=== PATIENT | female | born 1960 | race Caucasian/White ===

== ENCOUNTER → 2019-06-24 13:28 | Outpatient (BNVA) | payer MEDICAID, SELFPAY | PROVIDERS: Family Provider Nurse Practitioner Family; PCP Nurse Practitioner Family; Visit Provider Nurse Practitioner Family | DX: Z95.2 Presence of prosthetic heart valve (principal) | CPT/HCPCS: 36416; 85610 ==

== ENCOUNTER → 2019-10-07 11:00 | Outpatient (BNVA) | payer MEDICAID, SELFPAY | PROVIDERS: Family Provider Nurse Practitioner Family; PCP Nurse Practitioner Family; Visit Provider Nurse Practitioner Family | DX: R32 Unspecified urinary incontinence (principal); E03.9 Hypothyroidism, unspecified; E78.5 Hyperlipidemia, unspecified; Z79.899 Other long term (current) drug therapy; E55.9 Vitamin D deficiency, unspecified | CPT/HCPCS: 81001 ==

== ENCOUNTER → 2019-11-10 13:03 | Outpatient (BNVA) | payer MEDICAID, SELFPAY | PROVIDERS: Family Provider Nurse Practitioner Family; PCP Nurse Practitioner Family; Visit Provider Nurse Practitioner Family | DX: Z79.01 Long term (current) use of anticoagulants (principal) | CPT/HCPCS: 85610 ==

== ENCOUNTER → 2019-11-17 14:42 | Outpatient (BNVA) | payer MEDICAID, SELFPAY | PROVIDERS: Family Provider Nurse Practitioner Family; PCP Nurse Practitioner Family; Visit Provider Internal Medicine Cardiovascular Disease | DX: Z79.01 Long term (current) use of anticoagulants (principal) | CPT/HCPCS: 85610 ==

== ENCOUNTER → 2019-11-20 11:55 | Outpatient (BNVA) | payer MEDICAID, SELFPAY | PROVIDERS: Family Provider Nurse Practitioner Family; PCP Nurse Practitioner Family; Visit Provider Nurse Practitioner Family | DX: S20.01XA Contusion of right breast, initial encounter (principal); N64.4 Mastodynia; R07.89 Other chest pain; S29.9XXA Unspecified injury of thorax, initial encounter; W19.XXXA Unspecified fall, initial encounter | CPT/HCPCS: 71046 ==

== ENCOUNTER → 2019-11-26 13:23 | Outpatient (BNVA) | payer MEDICAID, SELFPAY | PROVIDERS: Family Provider Nurse Practitioner Family; PCP Nurse Practitioner Family; Visit Provider Nurse Practitioner Family | DX: Z79.01 Long term (current) use of anticoagulants (principal) | CPT/HCPCS: 85610 ==

== ENCOUNTER → 2019-12-17 09:10 | Outpatient (BNVA) | payer MEDICAID, SELFPAY | PROVIDERS: Family Provider Nurse Practitioner Family; PCP Nurse Practitioner Family; Visit Provider Nurse Practitioner Family | DX: Z79.01 Long term (current) use of anticoagulants (principal) | CPT/HCPCS: 85610 ==

== ENCOUNTER → 2020-04-12 14:08 | Outpatient (BNVA) | payer SELFPAY | PROVIDERS: Family Provider Nurse Practitioner Family; PCP Nurse Practitioner Family; Visit Provider Nurse Practitioner Family | DX: Z79.01 Long term (current) use of anticoagulants (principal) | CPT/HCPCS: 85610 ==

== ENCOUNTER → 2020-05-11 11:54 | Outpatient (BNVA) | payer MEDICAID, SELFPAY | PROVIDERS: Family Provider Nurse Practitioner Family; PCP Nurse Practitioner Family; Visit Provider Internal Medicine Nephrology | DX: N18.30 Chronic kidney disease, stage 3 unspecified (principal); Z79.01 Long term (current) use of anticoagulants | CPT/HCPCS: 80069; 82043; 85007; 85027 ==

== ENCOUNTER → 2020-09-27 14:04 | Outpatient (BNVA) | payer MEDICAID, SELFPAY | PROVIDERS: Family Provider Nurse Practitioner Family; PCP Nurse Practitioner Family; Visit Provider Nurse Practitioner Family | DX: Z79.01 Long term (current) use of anticoagulants (principal) | CPT/HCPCS: 85610 ==

== ENCOUNTER → 2020-10-15 09:06 | Outpatient (BNVA) | payer MEDICAID, SELFPAY | PROVIDERS: Family Provider Nurse Practitioner Family; PCP Nurse Practitioner Family; Visit Provider Nurse Practitioner Family | DX: I10 Essential (primary) hypertension (principal); E03.9 Hypothyroidism, unspecified; E55.9 Vitamin D deficiency, unspecified; E78.5 Hyperlipidemia, unspecified; Z79.899 Other long term (current) drug therapy; Z79.01 Long term (current) use of anticoagulants | CPT/HCPCS: 80053; 80061; 80178; 82306; 83036; 84443; 85025 ==

== ENCOUNTER → 2020-11-09 09:49 | Outpatient (BNVA) | payer MEDICAID, SELFPAY | PROVIDERS: Family Provider Nurse Practitioner Family; PCP Nurse Practitioner Family; Visit Provider Nurse Practitioner Family | DX: M25.552 Pain in left hip (principal) | CPT/HCPCS: 73502 ==

== ENCOUNTER → 2021-02-01 14:54 | Outpatient (BNVA) | payer MEDICAID, SELFPAY | PROVIDERS: Family Provider Nurse Practitioner Family; PCP Nurse Practitioner Family; Visit Provider Nurse Practitioner Family | DX: Z79.01 Long term (current) use of anticoagulants (principal) | CPT/HCPCS: 85610 ==

== ENCOUNTER → 2021-02-07 09:46 | Outpatient (BNVA) | payer MEDICAID, SELFPAY | PROVIDERS: Family Provider Nurse Practitioner Family; PCP Nurse Practitioner Family; Visit Provider Nurse Practitioner Family | DX: Z79.01 Long term (current) use of anticoagulants (principal) | CPT/HCPCS: 85610 ==

== ENCOUNTER → 2021-02-14 09:22 | Outpatient (BNVA) | payer MEDICAID, SELFPAY | PROVIDERS: Family Provider Nurse Practitioner Family; PCP Nurse Practitioner Family; Visit Provider Nurse Practitioner Family | DX: Z79.01 Long term (current) use of anticoagulants (principal) | CPT/HCPCS: 85610 ==

== ENCOUNTER → 2021-02-21 16:33 | Outpatient (BNVA) | payer MEDICAID, SELFPAY | PROVIDERS: Family Provider Nurse Practitioner Family; PCP Nurse Practitioner Family; Visit Provider Internal Medicine | DX: Z79.01 Long term (current) use of anticoagulants (principal) | CPT/HCPCS: 85610 ==

== ENCOUNTER → 2021-02-28 11:25 | Outpatient (BNVA) | payer MEDICAID, SELFPAY | PROVIDERS: Family Provider Nurse Practitioner Family; PCP Nurse Practitioner Family; Visit Provider Nurse Practitioner Family | DX: Z79.01 Long term (current) use of anticoagulants (principal) | CPT/HCPCS: 85610 ==

== ENCOUNTER → 2021-03-07 11:19 | Outpatient (BNVA) | payer MEDICAID, SELFPAY | PROVIDERS: Family Provider Nurse Practitioner Family; PCP Nurse Practitioner Family; Visit Provider Internal Medicine | DX: Z79.01 Long term (current) use of anticoagulants (principal) | CPT/HCPCS: 85610 ==

== ENCOUNTER 2021-03-24 | Outpatient (CLI) | payer MEDICAID, SELFPAY | END 2021-03-24 00:01 | disposition home or self-care (01) | LOC: RAD 11-01 09:48 | PROVIDERS: Family Provider Nurse Practitioner Family; PCP Internal Medicine; Visit Provider Internal Medicine | DX: Z79.01 Long term (current) use of anticoagulants (principal) | CPT/HCPCS: 85610 ==

== ENCOUNTER → 2021-04-19 10:29 | Outpatient (BNVA) | payer MEDICAID, SELFPAY | PROVIDERS: Family Provider Nurse Practitioner Family; PCP Internal Medicine; Visit Provider Nurse Practitioner Family | DX: Z79.01 Long term (current) use of anticoagulants (principal) | CPT/HCPCS: 85610 ==

== ENCOUNTER → 2021-05-11 10:30 | Outpatient (BNVA) | payer MEDICAID, SELFPAY | PROVIDERS: Family Provider Nurse Practitioner Family; PCP Internal Medicine; Visit Provider Nurse Practitioner Family | DX: I10 Essential (primary) hypertension (principal); E03.9 Hypothyroidism, unspecified; Z79.01 Long term (current) use of anticoagulants; E78.5 Hyperlipidemia, unspecified; Z79.899 Other long term (current) drug therapy | CPT/HCPCS: 81003; 85025; 85610; 87077; 87086; 87184; 87400 ==

== ENCOUNTER → 2021-05-12 13:42 | Outpatient (BNVA) | payer MEDICAID, SELFPAY | PROVIDERS: Family Provider Nurse Practitioner Family; PCP Internal Medicine; Visit Provider Nurse Practitioner Family | DX: R19.7 Diarrhea, unspecified (principal) | CPT/HCPCS: 87506 ==

== ENCOUNTER → 2021-05-17 10:13 | Outpatient (BNVA) | payer MEDICAID, SELFPAY | PROVIDERS: Family Provider Nurse Practitioner Family; PCP Internal Medicine; Visit Provider Nurse Practitioner Family | DX: E78.5 Hyperlipidemia, unspecified (principal); I10 Essential (primary) hypertension; E03.9 Hypothyroidism, unspecified; Z95.2 Presence of prosthetic heart valve; Z79.899 Other long term (current) drug therapy | CPT/HCPCS: 36415; 80053; 80061; 82306; 83036; 84443; 85025 ==

== ENCOUNTER → 2021-06-14 13:03 | Outpatient (BNVA) | payer MEDICAID, SELFPAY | PROVIDERS: Family Provider Nurse Practitioner Family; PCP Internal Medicine; Visit Provider Nurse Practitioner Family | DX: Z79.01 Long term (current) use of anticoagulants (principal) | CPT/HCPCS: 85610 ==

== ENCOUNTER → 2021-07-13 09:52 | Outpatient (BNVA) | payer MEDICAID, SELFPAY | PROVIDERS: Family Provider Nurse Practitioner Family; PCP Internal Medicine; Visit Provider Nurse Practitioner Family | DX: E03.9 Hypothyroidism, unspecified (principal); Z79.01 Long term (current) use of anticoagulants; E55.9 Vitamin D deficiency, unspecified; Z79.899 Other long term (current) drug therapy | CPT/HCPCS: 80053; 80178; 84439; 84443; 85610 ==

== ENCOUNTER → 2021-07-15 11:50 | Outpatient (BNVA) | payer MEDICAID, SELFPAY | PROVIDERS: Family Provider Nurse Practitioner Family; PCP Internal Medicine; Visit Provider Internal Medicine | DX: Z79.01 Long term (current) use of anticoagulants (principal) ==

== ENCOUNTER → 2021-08-09 11:51 | Outpatient (BNVA) | payer MEDICAID, SELFPAY | PROVIDERS: Family Provider Nurse Practitioner Family; PCP Internal Medicine; Visit Provider Internal Medicine Nephrology | DX: N18.30 Chronic kidney disease, stage 3 unspecified (principal) | CPT/HCPCS: 81003; 82043 ==

== ENCOUNTER → 2021-08-10 10:30 | Outpatient (BNVA) | payer MEDICAID, SELFPAY | PROVIDERS: Family Provider Nurse Practitioner Family; PCP Internal Medicine; Visit Provider Internal Medicine | DX: Z79.01 Long term (current) use of anticoagulants (principal) | CPT/HCPCS: 85610 ==

== ENCOUNTER → 2021-08-19 13:23 | Outpatient (BNVA) | payer MEDICAID, SELFPAY | PROVIDERS: Family Provider Nurse Practitioner Family; PCP Internal Medicine; Visit Provider Internal Medicine | DX: Z79.01 Long term (current) use of anticoagulants (principal) ==

== ENCOUNTER → 2021-08-23 16:49 | Outpatient (BNVA) | payer MEDICAID, SELFPAY | PROVIDERS: Family Provider Nurse Practitioner Family; PCP Internal Medicine; Visit Provider Nurse Practitioner | DX: Z79.01 Long term (current) use of anticoagulants (principal) | CPT/HCPCS: 85610 ==

== ENCOUNTER → 2021-08-24 13:05 | Outpatient (BNVA) | payer MEDICAID, SELFPAY | PROVIDERS: Family Provider Nurse Practitioner Family; PCP Internal Medicine; Visit Provider Internal Medicine | DX: Z79.01 Long term (current) use of anticoagulants (principal) ==

== ENCOUNTER → 2021-09-27 16:43 | Outpatient (BNVA) | payer MEDICAID, SELFPAY | PROVIDERS: Family Provider Nurse Practitioner Family; PCP Internal Medicine; Visit Provider Internal Medicine | DX: Z79.01 Long term (current) use of anticoagulants (principal) | CPT/HCPCS: 85610 ==

== ENCOUNTER → 2021-09-30 13:05 | Outpatient (BNVA) | payer MEDICAID, SELFPAY | PROVIDERS: Family Provider Nurse Practitioner Family; PCP Internal Medicine; Visit Provider Internal Medicine | DX: Z79.01 Long term (current) use of anticoagulants (principal) ==

== ENCOUNTER → 2021-10-10 13:21 | Outpatient (BNVA) | payer MEDICAID, SELFPAY | PROVIDERS: Family Provider Nurse Practitioner Family; PCP Internal Medicine; Visit Provider Internal Medicine | DX: Z79.01 Long term (current) use of anticoagulants (principal) | CPT/HCPCS: 85610 ==

== ENCOUNTER → 2021-10-14 08:58 | Outpatient (BNVA) | payer MEDICAID, SELFPAY | PROVIDERS: Family Provider Nurse Practitioner Family; PCP Internal Medicine; Visit Provider Internal Medicine | DX: Z79.01 Long term (current) use of anticoagulants (principal) ==

== ENCOUNTER → 2021-10-21 09:17 | Outpatient (BNVA) | payer MEDICAID, SELFPAY | PROVIDERS: Family Provider Nurse Practitioner Family; PCP Internal Medicine; Visit Provider Internal Medicine | DX: Z79.01 Long term (current) use of anticoagulants (principal) ==

== ENCOUNTER → 2021-11-29 08:46 | Outpatient (BNVA) | payer MEDICAID, SELFPAY | PROVIDERS: Family Provider Nurse Practitioner Family; PCP Internal Medicine; Visit Provider Nurse Practitioner | DX: N18.32 Chronic kidney disease, stage 3b (principal) | CPT/HCPCS: 80069; 82043; 82306; 82310; 83970; 85025; 85610 ==

== ENCOUNTER 2021-11-30 09:48 | Emergency (ER) | payer MEDICAID, SELFPAY ==
[2021-11-30 09:59] VITALS: BP 157/84; PULSE 94; RESP 18; TEMP 36.8; O2SAT 96; BMI 35.4
[2021-11-30 10:03] VITALS: BP 148/75; O2SAT 99
--- NOTE | 2021-11-30 10:15 | US_ITS ---
WS: [id number] ULTRASOUND SOFT TISSUES RIGHT lateral thigh HISTORY: R lateral thigh hematoma COMPARISON: None available. TECHNIQUE: 2-D and color Doppler imaging is submitted. There is a complex elongated soft tissue mass with low-level echoes over the RIGHT lateral thigh. Mas s measures 5.5 x 1.9 x 2.4 cm. There is no increased vascularity. The low level echoes throughout. IMPRESSION: Complex, nonvascular mass along the RIGHT lateral thigh is most likely a soft tissue hematoma with m ild liquefaction.
--- NOTE | 2021-11-30 10:21 | W.ED.GENADLT ---
HPI - General Adult General: Chief complaint: General Medical Stated complaint: abnormality on right thigh Time Seen by Provider: 11/30/21 09:53 Source: patient Mode of arrival: ambulatory Limitations: no limitations History of Present Illness: 61-year-old female presents emergency room with a right thigh hematoma that seem to have began spontaneously. She is on Coumadin and she checked her INR a few days ago over the home kit and it was 3.1. She can recall no trauma. She not had any chest pain or shortness of breath with that. It is exquisitely tender to touch Onset (ago): day(s) Location: lower extremity (Right lateral thigh proximally) Severity: moderate Quality: aching Pain Consistency: constant Relieving factors: rest Exacerbating factors: movement and other (Palpation) Associated symptoms: Deny chest pain, confusion, cough, diaphoresis, decreased appetite, dyspnea, fevers/chills, headache(s), malaise, nausea, rash, palpitations, seizures, short of breath, syncope, vomiting or weakness Treatments prior to arrival: none Review of Systems Const: Denies: fever(s), chills, fatigue, malaise or diaphoresis ENMT: Denies: throat pain, ear or mastoid pain, nasal discharge or nasal congestion Card: Denies: chest pain, palpitations or syncope Resp: Denies: dyspnea GI: Denies: abdominal pain, nausea or vomiting : Denies: flank pain, difficulty voiding, dysuria, urinary frequency or urinary urgency Skin/Breast: Denies: rash Neuro: Denies: headache(s) or confusion PFS ED PFSH: Medical History Bipolar disorder, current episode depressed, moderate Chest pain Chronic bronchitis Chronic low back pain COPD (chronic obstructive pulmonary disease) COPD exacerbation Dyslipidemia Flu-like symptoms Generalized anxiety disorder GERD (gastroesophageal reflux disease) Hepatitis C Hypothyroid Laceration of scalp Left hip pain Medication management Obesity Oral herpes simplex infection Psychiatric care Sleep apnea Tobacco abuse Urinary incontinence Urinary tract infection Vitamin D deficiency Vitamin D deficiency Warfarin anticoagulation Surgical History H/O mitral valve replacement with mechanical valve Family History Father CAD (coronary artery disease) Cancer Brother Hypertension Mother Hypertension Hyperlipidemia Grandfather Diabetes Grandmother Diabetes Social History Smoking and tobacco status: current every day smoker Alcohol intake: never Lives independently: Yes Household members: spouse Marital status: Current occupational status: disabled History of recent travel: No Current gender identity: Female Physical Exam Const: COMMON NORMALS: no acute distress GENERAL APPEARANCE: cooperative and comfortable ORIENTATION/CONSCIOUSNESS: Yes awake, Yes oriented to person, Yes oriented to place and Yes oriented to time HENMT: COMMON NORMALS: normocephalic, atraumatic and hearing grossly normal bilaterally HEAD & SCALP: normocephalic and atraumatic Resp: COMMON NORMALS: normal respiratory effort, No retractions, No use of accessory muscles and clear to auscultation bilaterally AUSCULTATION: clear to auscultation bilaterally Cardio: COMMON NORMALS: regular rate, regular rhythm and No murmurs present (Cardio) RATE: regular rate RHYTHM: regular rhythm GI: COMMON NORMALS: Soft to palpation and No hepatosplenomegaly present AUSCULTATION: Yes normoactive bowel sounds PALPATION: Yes Soft to palpation, No Tenderness to palpation present (GI), No Guarding due to palpation present (GI) and Yes No hepatosplenomegaly present Extremity: NARRATIVE EXTREMITY EXAM: Right lateral proximal thigh there is a palpable hematoma with significant ecchymosis. Is exquisitely tender. Nonpulsatile neurovascularly lower extremity is otherwise intact Neuro: SENSORIUM/ORIENTATION: Yes oriented to person, Yes oriented to place and Yes oriented to time Skin: COMMON NORMALS: no rashes or lesions noted GENERAL SKIN EXAM: no rashes or lesions noted Course Vital Signs: Vital signs: Vital Signs Temperature 98.3 F 11/30/21 09:59 Pulse Rate 69 11/30/21 13:58 Respiratory Rate 18 11/30/21 13:03 Blood Pressure 137/66 11/30/21 13:58 Pulse Oximetry 98 11/30/21 13:58 Oxygen Delivery Me thod 11/30/21 13:03 MDM - General Adult Medical Decision Making INR within target range for mechanical valve at 3. Hemoglobin is stable. No change in Coumadin apply ice to the affected area will need to reabsorb on its own over time. Follow-up with primary care to reevaluate in the next 3 to 5 days. Medical Records I reviewed the patient's medical records. Lab Data I reviewed the patient's lab results. : 11/30/21 11:45 Laboratory Results WBC 5.4 10^3/uL (4.0-10.0) 11/30/21 11:45 RBC 3.55 10^6/uL (4.1-5.3) L 11/30/21 11:45 Hgb 11.0 g/dL (11.5-15.3) L 11/30/21 11:45 Hct 33.5 % (37.0-47.0) L 11/30/21 11:45 MCV 94.4 fl (81-99) 11/30/21 11:45 MCH 31.0 pg (28.0-34.0) 11/30/21 11:45 MCHC 32.8 g/dL (30.0-36.0) D 11/30/21 11:45 RDW 13.2 % (12.1-15.1) 11/30/21 11:45 Plt Count 212 10^3/cmm (130-400) 11/30/21 11:45 MPV 10.9 fL (7.4-10.4) H 11/30/21 11:45 Neut % (Auto) 67.2 % 11/30/21 11:45 Lymph % (Auto) 18.8 % 11/30/21 11:45 Kemper % (Auto) 9.6 % 11/30/21 11:45 Eos % (Auto) 3.3 % 11/30/21 11:45 Baso % (Auto) 0.9 % 11/30/21 11:45 Neut # (Auto) 3.64 10^3/uL (1.8-7.7) 11/30/21 11:45 Lymph # (Auto) 1.0 10^3/uL (0.8-4.8) 11/30/21 11:45 Kemper # (Auto) 0.5 10^3/uL (0.2-0.9) 11/30/21 11:45 Eos # (Auto) 0.2 10^3/uL (0.0-0.8) 11/30/21 11:45 Baso # (Auto) 0.1 10^3/uL (0.0-0.1) 11/30/21 11:45 Nucleated RBC % (auto) 0 % 11/30/21 11:45 Nucleated RBCs # 0.0 /100WBC 11/30/21 11:45 PT 31.60 SECONDS (12.1-14.9) H D 11/30/21 11:45 INR 3.02 (0.8-1.2) H 11/30/21 11:45 Discharge Plan Discharge Patient Disposition: Home Clinical Impression: Thigh hematoma, Chronic anticoagulation Condition: Stable Prescriptions: No Action gabapentin 300 mg capsule 300 mg PO BID hydrocodone-acetaminophen 10-325 mg tablet 1 tab PO DAILY PRN (Reason: pain) duloxetine [Cymbalta] 60 mg capsule,delayed release(DR/EC) 60 mg PO BID 90 Days Qty: 180 0RF lamotrigine 200 mg tablet 200 mg PO DAILY 30 Days Qty: 30 2RF hydroxyzine HCl 25 mg tablet 25 mg PO TID PRN (Reason: itching, anxiety) Qty: 90 1RF warfarin 6 mg tablet 6 mg PO DAILY Qty: 90 0RF Protocol: Dose Management Condition: Sunday Dose/Route: 6 mg Instruction: 1 x 6 mg tablet Condition: Sunday Dose/Route: 6 mg Instruction: 1 x 6 mg tablet Condition: Sunday Dose/Route: 6 mg Instruction: 1 x 6 mg tablet Condition: Sunday Dose/Route: 6 mg Instruction: 1 x 6 mg tablet Condition: Dose/Route: 6 mg Instruction: 1 x 6 mg tablet Condition: Sunday Dose/Route: 6 mg Instruction: 1 x 6 mg tablet Condition: Sunday Dose/Route: 6 mg Instruction: 1 x 6 mg tablet Protocol Text: Adjustment Start Date: Sunday10/21/21 INR Value: 3.5 INR Date: 10/18/21 Recheck Date: 10/28/21 ergocalciferol (vitamin D2) 1,250 mcg (50,000 unit) Capsule 1,250 mcg PO Q7D Rx Instructions: ON MONDAYS acyclovir 400 mg Tablet 400 mg PO DAILY oxybutynin chloride 15 mg tablet extended release 24hr 15 mg PO BID cetirizine 10 mg tablet 10 mg PO DAILY sucralfate 100 mg/mL suspension See Rx Instructions .ROUTE .COMPLEX PRN (Reason: Stomach Upset) Rx Instructions: TAKE 20mL BY MOUTH TWICE DAILY FOR 30 DAYS; ((PATIENT NEEDS APPT BEFORE ADDITIONAL REFILLS GIVEN)) aspirin 81 mg tablet,delayed release (DR/EC) 81 mg PO DAILY famotidine 20 mg tablet 20 mg PO BID FeroSul 325 mg (65 mg iron) tablet 325 mg PO BID verapamil 240 mg tablet extended release 120 mg PO BEDTIME folic acid 1 mg tablet 1 mg PO DAILY tenofovir disoproxil fumarate 300 mg tablet 300 mg PO DAILY levothyroxine 112 mcg tablet 112 mcg PO DAILY rosuvastatin 5 mg tablet 5 mg PO BEDTIME Anoro Ellipta 62.5-25 mcg/actuation blister with device 1 inh inhalation DAILY Rx Instructions: USE ONE INHALATION EVERY DAY Combivent Respimat 20-100 mcg/actuation mist 1 puff inhalation Q6H PRN (Reason: Shortness Of Breath) Caplyta 42 mg capsule 42 mg PO BEDTIME Ambien 10 mg tablet 10 mg PO BEDTIME Voltaren Arthritis Pain 1 % gel 2 g topical QID PRN (Reason: Pain) Rx Instructions: apply to affected foot. Discharge Orders: Discharge ED (Routine); Ordered 11/30/21 Ordered By: Jerardo Pavon Referrals: Angel Clay M.D [Primary Care Provider] - Discharge Diet: Usual diet Discharge Activity: Resume usual activity Patient Instructions: Opioid Safety Activity Restrictions/Additional Instructions: Follow-up with your primary care doctor within the next 5 to 7 days. Do not apply heat to the hematoma use ice for comfort as needed. Coding Level of Care Code ED Interpreter And Translator for Maynor eMsa
[2021-11-30 11:53] LABS: Basophils # 0.1 10^3/uL (0.0-0.1); Basophils % 0.9 %; Eosinophils # 0.2 10^3/uL (0.0-0.8); Eosinophils % 3.3 %; Hematocrit 33.5 % (37.0-47.0); Lymphocytes % 18.8 %; Mean Corpuscular Volume 94.4 fl (81-99); Mean Platelet Volume 10.9 fL (7.4-10.4); Monocytes # 0.5 10^3/uL (0.2-0.9); Monocytes % 9.6 %; Neutrophils # 3.64 10^3/uL (1.8-7.7); Neutrophils % 67.2 %; Nucleated Red Blood Cells % 0 %; Platelet Count 212 10^3/cmm (130-400); Red Blood Count 3.55 10^6/uL (4.1-5.3); Red Cell Distribution Width 13.2 % (12.1-15.1); White Blood Count 5.4 10^3/uL (4.0-10.0)
[2021-11-30 11:57] LABS: Mean Corpuscular HGB Conc 32.8 g/dL (30.0-36.0)
[2021-11-30 12:25] VITALS: BP 140/70; O2SAT 99
[2021-11-30 13:03] VITALS: BP 130/74; RESP 18; O2SAT 94
[2021-11-30 13:03] LABS: INR 3.02 (0.8-1.2)
[2021-11-30 13:58] VITALS: BP 137/66; PULSE 69; O2SAT 98
== END 2021-11-30 14:01 | disposition home or self-care (01) ==
PROVIDERS: Emergency Provider Family Medicine; PCP Internal Medicine
DX: S70.11XA Contusion of right thigh, initial encounter (principal); D68.318 Other hemorrhagic disorder due to intrinsic circulating anticoagulants, antibodies, or inhibitors; Z79.01 Long term (current) use of anticoagulants; Z79.82 Long term (current) use of aspirin; J44.9 Chronic obstructive pulmonary disease, unspecified; E78.5 Hyperlipidemia, unspecified; Z86.19 Personal history of other infectious and parasitic diseases; F17.210 Nicotine dependence, cigarettes, uncomplicated; X58.XXXA Exposure to other specified factors, initial encounter
CPT/HCPCS: 36415; 76882; 85025; 85610; 99284

== ENCOUNTER → 2021-12-01 09:11 | Outpatient (BNVA) | payer MEDICAID, SELFPAY | PROVIDERS: PCP Internal Medicine; Visit Provider Internal Medicine Nephrology | DX: N18.9 Chronic kidney disease, unspecified (principal) | CPT/HCPCS: 82043 ==

== ENCOUNTER → 2021-12-28 09:25 | Outpatient (BNVA) | payer MEDICAID, SELFPAY | PROVIDERS: PCP Internal Medicine; Visit Provider Internal Medicine | DX: Z79.01 Long term (current) use of anticoagulants (principal) | CPT/HCPCS: 85610; 87426 ==

== ENCOUNTER → 2022-01-12 10:47 | Outpatient (BNVA) | payer MEDICAID, SELFPAY | PROVIDERS: PCP Internal Medicine; Visit Provider Internal Medicine | DX: Z79.01 Long term (current) use of anticoagulants (principal) | CPT/HCPCS: 85610 ==

== ENCOUNTER → 2022-01-17 10:05 | Outpatient (BNVA) | payer MEDICAID, SELFPAY | PROVIDERS: PCP Internal Medicine; Visit Provider Internal Medicine | DX: Z79.01 Long term (current) use of anticoagulants (principal) | CPT/HCPCS: 85610 ==

== ENCOUNTER → 2022-01-18 14:52 | Outpatient (BNVA) | payer MEDICAID, SELFPAY | PROVIDERS: PCP Nurse Practitioner Family; Visit Provider Internal Medicine | DX: I10 Essential (primary) hypertension (principal); Z95.2 Presence of prosthetic heart valve; Z79.01 Long term (current) use of anticoagulants; E78.5 Hyperlipidemia, unspecified; R06.02 Shortness of breath | CPT/HCPCS: 99214 ==

== ENCOUNTER → 2022-01-24 09:08 | Outpatient (BNVA) | payer MEDICAID, SELFPAY | PROVIDERS: PCP Nurse Practitioner Family; Visit Provider Nurse Practitioner | DX: Z79.01 Long term (current) use of anticoagulants (principal) | CPT/HCPCS: 85610 ==

== ENCOUNTER → 2022-02-01 09:44 | Outpatient (BNVA) | payer MEDICAID, SELFPAY | PROVIDERS: PCP Nurse Practitioner Family; Visit Provider Nurse Practitioner Family | DX: I10 Essential (primary) hypertension (principal) | CPT/HCPCS: 80053; 85610 ==

== ENCOUNTER → 2022-02-09 14:54 | Outpatient (BNVA) | payer MEDICAID, SELFPAY | PROVIDERS: PCP Nurse Practitioner Family; Visit Provider Internal Medicine | DX: Z79.01 Long term (current) use of anticoagulants (principal) | CPT/HCPCS: 85610 ==

== ENCOUNTER → 2022-02-22 14:12 | Outpatient (BNVA) | payer MEDICAID, SELFPAY | PROVIDERS: PCP Nurse Practitioner Family; Visit Provider Internal Medicine | DX: Z79.01 Long term (current) use of anticoagulants (principal) | CPT/HCPCS: 85610 ==

== ENCOUNTER → 2022-03-22 08:28 | Outpatient (BNVA) | payer MEDICAID, SELFPAY | PROVIDERS: PCP Nurse Practitioner Family; Visit Provider Internal Medicine | DX: Z79.01 Long term (current) use of anticoagulants (principal) | CPT/HCPCS: 85610 ==

== ENCOUNTER 2022-03-23 | Outpatient (CLI) | payer MEDICAID, SELFPAY | END 2022-03-23 23:00 | disposition home or self-care (01) | LOC: RAD 04-05 10:36 | PROVIDERS: PCP Nurse Practitioner Family; Visit Provider Nurse Practitioner Family | DX: M25.562 Pain in left knee (principal); M25.462 Effusion, left knee | CPT/HCPCS: 73562 ==

== ENCOUNTER → 2022-03-29 08:27 | Outpatient (BNVA) | payer MEDICAID, SELFPAY | PROVIDERS: PCP Nurse Practitioner Family; Visit Provider Internal Medicine | DX: Z79.01 Long term (current) use of anticoagulants (principal) | CPT/HCPCS: 85610 ==

== ENCOUNTER → 2022-04-03 11:53 | Outpatient (BNVA) | payer MEDICAID, SELFPAY | PROVIDERS: PCP Nurse Practitioner Family; Visit Provider Family Medicine | DX: M17.12 Unilateral primary osteoarthritis, left knee (principal); M25.562 Pain in left knee | CPT/HCPCS: 73562 ==

== ENCOUNTER → 2022-04-13 08:46 | Outpatient (BNVA) | payer MEDICAID, SELFPAY | PROVIDERS: PCP Nurse Practitioner Family; Visit Provider Student in an Organized Health Care Education/Training Program | DX: M22.42 Chondromalacia patellae, left knee (principal) | CPT/HCPCS: 20610; 99203 ==

== ENCOUNTER → 2022-04-17 14:11 | Outpatient (BNVA) | payer MEDICAID, SELFPAY | PROVIDERS: PCP Nurse Practitioner Family; Visit Provider Internal Medicine | DX: Z79.01 Long term (current) use of anticoagulants (principal) | CPT/HCPCS: 85610 ==

== ENCOUNTER 2022-04-24 11:20 | Emergency (ER) | payer MEDICAID, SELFPAY ==
[2022-04-24] VITALS (29 sets, daily range): BP systolic 107–146; BP diastolic 72–86; PULSE 64–77; RESP 15–16; TEMP 36.9; O2SAT 90–98; BMI 33.6
--- NOTE | 2022-04-24 12:02 | XR_ITS ---
WS: [id number] Exam: XR chest 1V portable [id number] Date/Time of Exam: 04/24/2022 12:06 PM Reason For Exam: cough Comparison 11/20/2019. The lungs are fully inflated and clear. Mild cardiac enlargement with signs of cardiac valve replacem ent. No pleural effusions. The mediastinum and osseous thorax are unremarkable. XR/XR chest 1V portable [id number] IMPRESSION: 1. Mild cardiac enlargement. No acute process identified.
--- NOTE | 2022-04-24 12:03 | ED_ITS ---
HPI - General Adult General: Chief complaint: General Medical Stated complaint: cough and congestion for 3xweeks Time Seen by Provider: 04/24/22 11:30 History of Present Illness: Patient comes in with a persistent cough. States that 3 weeks ago she was sick with cough and congestion. States that the cough is persisted. States that she also ran a fever again 5 days ago. States she was just concerned and wanted to be evaluated. Associated symptoms: Deny chest pain, dyspnea, headache(s), nausea, rash, palpitations or vomiting Review of Systems Const: Reports: fever(s); Denies: body aches Eyes: Denies: change in vision or blurry vision ENMT: Denies: throat pain or odynophagia Card: Denies: chest pain or palpitations Resp: Reports: non-productive cough; Denies: dyspnea GI: Denies: abdominal pain, nausea or vomiting : Denies: flank pain or dysuria Musc: Denies: neck pain or back pain Skin/Breast: Denies: rash or pruritus Neuro: Denies: headache(s) or numbness in extremities Psych: Denies: anxiety or change in appetite Endo: Denies: polyuria or excessive sweating PFSH ED PFSH: Medical History (Updated 04/24/22 @ 13:30 by Arturo Willard MD) Bipolar disorder, current episode depressed, moderate Chest pain Chondromalacia of left patellofemoral joint Chronic bronchitis Chronic low back pain COPD (chronic obstructive pulmonary disease) COPD exacerbation Dyslipidemia Flu-like symptoms Generalized anxiety disorder GERD (gastroesophageal reflux disease) Hepatitis C Hypothyroid Insomnia Laceration of scalp Left hip pain Medication management Obesity Oral herpes simplex infection Psychiatric care Sleep apnea Tobacco abuse Urinary incontinence Urinary tract infection Vitamin D deficiency Vitamin D deficiency Warfarin anticoagulation Surgical History H/O mitral valve replacement with mechanical valve Family History Father CAD (coronary artery disease) Cancer Brother Hypertension Mother Hypertension Hyperlipidemia Grandfather Diabetes Grandmother Diabetes Social History Smoking and tobacco status: never smoked Alcohol intake: never Lives independently: Yes Household members: spouse Marital status: Current occupational status: disabled History of recent travel: No Current gender identity: Female Physical Exam Const: COMMON NORMALS: no acute distress, patient oriented x3, healthy appearing and alert HENMT: COMMON NORMALS: normocephalic and atraumatic HEAD & SCALP: normocephalic and atraumatic Eye: COMMON NORMALS: Equal, round and reactive pupils present and EOMs intact bilaterally PUPIL: Yes Equal, round and reactive pupils present Neck/C-Spine: COMMON NORMALS: full ROM and supple Resp: COMMON NORMALS: normal respiratory effort, No retractions and No use of accessory muscles Cardio: COMMON NORMALS: regular rate and regular rhythm RATE: regular rate RHYTHM: regular rhythm GI: COMMON NORMALS: Normal to inspection, nondistended, normoactive bowel sounds present, Soft to palpation and non-tender PALPATION: Yes Soft to palpation Back/Pelvis: COMMON NORMALS: thoracic and lumbar spine normal to inspection and no thoracic nor lumbar tenderness Extremity: COMMON NORMALS: normal to inspection and full ROM Neuro: COMMON NORMALS: patient oriented x3 SENSORIUM/ORIENTATION: Yes alert Psych: COMMON NORMALS: mental status grossly normal and cooperative Skin: COMMON NORMALS: no rashes or lesions noted and no wounds GENERAL SKIN EXAM: no rashes or lesions noted Course Vital Signs: Vital signs: Vital Signs Temperature 98.5 F 04/24/22 11:25 Pulse Rate 77 04/24/22 11:25 Respiratory Rate 15 04/24/22 11:25 Blood Pressure 107/84 04/24/22 11:55 Pulse Oximetry 95 04/24/22 11:55 Oxygen Delivery Me thod 04/24/22 11:25 MDM - General Adult Medical Decision Making Patient comes in with a persistent cough. States that 3 weeks ago she was sick with cough and congestion. States that the cough is persisted. States that she also ran a fever again 5 days ago. States she was just concerned and wanted to be evaluated. On physical exam her lungs are clear to auscultation. Will check x-ray, and reassess. Lab Data Radiology Impressions Chest X-Ray 04/24/22 12:02 IMPRESSION: 1. Mild cardiac enlargement. No acute process identified. Discharge Plan Discharge Patient Disposition: Home Clinical Impression: Viral illness Condition: Stable Prescriptions: New prednisone 20 mg tablet 60 mg PO DAILY 5 Days Qty: 15 0RF No Action hydrocodone-acetaminophen 10-325 mg tablet 1 tab PO DAILY PRN (Reason: pain) hydrocodone-acetaminophen 5-325 mg tablet 1 tab PO BID PRN (Reason: pain) 7 Days Qty: 14 0RF doxycycline hyclate 100 mg capsule 100 mg PO BID 7 Days Qty: 14 0RF promethazine-DM 6.25-15 mg/5 mL syrup 5 ml PO Q6H PRN (Reason: cough) Qty: 473 0RF molnupiravir 200 mg capsule 800 mg PO Q12H 5 Days Qty: 40 0RF gabapentin 300 mg capsule 300 mg PO BID Qty: 60 3RF (DME) CPAP machine portable See Rx Instructions .Route .MEDSUPPLY Qty: 1 0RF Rx Instructions: As directed, HOME medical supply oxybutynin chloride 15 mg tablet extended release 24hr See Rx Instructions .ROUTE .COMPLEX Qty: 30 5RF Dose Instruction: TAKE ONE TABLET BY MOUTH EVERY DAY Rx Instructions: TAKE ONE TABLET BY MOUTH EVERY DAY famotidine 20 mg tablet See Rx Instructions .ROUTE .COMPLEX Qty: 60 5RF Dose Instruction: TAKE ONE TABLET BY MOUTH TWICE DAILY FOR 30 DAYS Rx Instructions: TAKE ONE TABLET BY MOUTH TWICE DAILY FOR 30 DAYS tenofovir disoproxil fumarate 300 mg tablet See Rx Instructions .ROUTE .COMPLEX Qty: 90 3RF Dose Instruction: TAKE ONE TABLET BY MOUTH EVERY DAY NEED APPT+++ Rx Instructions: TAKE ONE TABLET BY MOUTH EVERY DAY NEED APPT+++ hydroxyzine HCl 25 mg tablet 25 mg PO TID PRN (Reason: itching, anxiety) Qty: 90 2RF Caplyta 42 mg capsule 42 mg PO BEDTIME Qty: 30 2RF rosuvastatin 5 mg tablet 5 mg PO BEDTIME Qty: 90 0RF verapamil 240 mg tablet extended release See Rx Instructions .ROUTE .COMPLEX Qty: 15 5RF Dose Instruction: TAKE ONE-HALF tablet BY MOUTH EVERY DAY Rx Instructions: TAKE ONE-HALF tablet BY MOUTH EVERY DAY lamotrigine 200 mg tablet 200 mg PO DAILY 30 Days Qty: 30 2RF duloxetine [Cymbalta] 60 mg capsule,delayed release(DR/EC) 60 mg PO BID 90 Days Qty: 180 0RF Anoro Ellipta 62.5-25 mcg/actuation blister with device See Rx Instructions .ROUTE .COMPLEX Qty: 60 2RF Dose Instruction: USE ONE INHALATION EVERY DAY Rx Instructions: USE ONE INHALATION EVERY DAY warfarin 6 mg tablet 6 mg PO DAILY Qty: 90 2RF Protocol: Dose Management Condition: Sunday Dose/Route: 5 mg Instruction: 1 x 5 mg tablet Condition: Sunday Dose/Route: 5 mg Instruction: 1 x 5 mg tablet Condition: Sunday Dose/Route: 5 mg Instruction: 1 x 5 mg tablet Condition: Sunday Dose/Route: 6 mg Instruction: 1 x 6 mg tablet Condition: Dose/Route: 5 mg Instruction: 1 x 5 mg tablet Condition: Sunday Dose/Route: 5 mg Instruction: 1 x 5 mg tablet Condition: Sunday Dose/Route: 5 mg Instruction: 1 x 5 mg tablet Protocol Text: Adjustment Start Date: Sunday04/21/22 INR Value: 43.60 SECONDS INR Date: 04/17/22 Recheck Date: 04/28/22 levothyroxine 112 mcg tablet See Rx Instructions .ROUTE .COMPLEX Qty: 30 2RF Dose Instruction: TAKE 1 TABLET BY MOUTH EVERY DAY Rx Instructions: TAKE 1 TABLET BY MOUTH EVERY DAY cetirizine 10 mg tablet See Rx Instructions .ROUTE .COMPLEX Qty: 30 2RF Dose Instruction: TAKE 1 TABLET BY MOUTH EVERY DAY Rx Instructions: TAKE 1 TABLET BY MOUTH EVERY DAY ferrous sulfate [FeroSul] 325 mg (65 mg iron) tablet See Rx Instructions .ROUTE .COMPLEX Qty: 60 5RF Dose Instruction: TAKE 1 TABLET BY MOUTH TWICE DAILY Rx Instructions: TAKE 1 TABLET BY MOUTH TWICE DAILY Ambien 10 mg tablet 10 mg PO BEDTIME 30 Days Qty: 30 0RF warfarin 5 mg tablet 5 mg PO DAILY Qty: 90 1RF Protocol: Dose Management Condition: Sunday Dose/Route: 5 mg Instruction: 1 x 5 mg tablet Condition: Sunday Dose/Route: 5 mg Instruction: 1 x 5 mg tablet Condition: Sunday Dose/Route: 5 mg Instruction: 1 x 5 mg tablet Condition: Sunday Dose/Route: 6 mg Instruction: 1 x 6 mg tablet Condition: Dose/Route: 5 mg Instruction: 1 x 5 mg tablet Condition: Sunday Dose/Route: 5 mg Instruction: 1 x 5 mg tablet Condition: Sunday Dose/Route: 5 mg Instruction: 1 x 5 mg tablet Protocol Text: Adjustment Start Date: Sunday04/21/22 INR Value: 43.60 SECONDS INR Date: 04/17/22 Recheck Date: 04/28/22 Rx Instructions: Take 1 tablet by mouth daily as directed per INR results prednisone 20 mg tablet 20 mg PO DAILY 5 Days Qty: 5 0RF albuterol sulfate 2.5 mg /3 mL (0.083 %) solution for nebulization 2.5 mg inhalation QID PRN (Reason: shortness of breath or wheezing) Qty: 75 0RF ergocalciferol (vitamin D2) 1,250 mcg (50,000 unit) Capsule 1,250 mcg PO Q7D Rx Instructions: ON MONDAYS acyclovir 400 mg Tablet 400 mg PO DAILY sucralfate 100 mg/mL suspension See Rx Instructions .ROUTE .COMPLEX PRN (Reason: Stomach Upset) Rx Instructions: TAKE 20mL BY MOUTH TWICE DAILY FOR 30 DAYS; ((PATIENT NEEDS APPT BEFORE ADDITIONAL REFILLS GIVEN)) aspirin 81 mg tablet,delayed release (DR/EC) 81 mg PO DAILY folic acid 1 mg tablet 1 mg PO DAILY Combivent Respimat 20-100 mcg/actuation mist 1 puff inhalation Q6H PRN (Reason: Shortness Of Breath) Voltaren Arthritis Pain 1 % gel 2 g topical QID PRN (Reason: Pain) Rx Instructions: apply to affected foot. Discharge Orders: Discharge ED (Routine); Ordered 04/24/22 Ordered By: Arturo Willard Referrals: Dex Michaels FNP [Primary Care Provider] - Coding Level of Care Code ED Fur Blowing Machine Attendant for Chg Fwd Exam Comprehensive
== END 2022-04-24 14:12 | disposition home or self-care (01) ==
PROVIDERS: Emergency Provider Emergency Medicine; PCP Nurse Practitioner Family
DX: B34.9 Viral infection, unspecified (principal)
CPT/HCPCS: 71045; 99283

== ENCOUNTER → 2022-05-03 08:25 | Outpatient (BNVA) | payer MEDICAID, SELFPAY | PROVIDERS: PCP Nurse Practitioner Family; Visit Provider Internal Medicine | DX: Z79.01 Long term (current) use of anticoagulants (principal) | CPT/HCPCS: 85610 ==

== ENCOUNTER → 2022-05-10 16:09 | Outpatient (BNVA) | payer MEDICAID, SELFPAY | PROVIDERS: PCP Nurse Practitioner Family; Visit Provider Internal Medicine | DX: Z79.01 Long term (current) use of anticoagulants (principal) | CPT/HCPCS: 85610 ==

== ENCOUNTER → 2022-05-22 10:32 | Outpatient (BNVA) | payer MEDICAID, SELFPAY | PROVIDERS: PCP Nurse Practitioner Family; Visit Provider Internal Medicine | DX: Z79.01 Long term (current) use of anticoagulants (principal) | CPT/HCPCS: 85610 ==

== ENCOUNTER → 2022-06-12 08:33 | Outpatient (BNVA) | payer MEDICAID, SELFPAY | PROVIDERS: PCP Nurse Practitioner Family; Visit Provider Student in an Organized Health Care Education/Training Program | DX: G56.03 Carpal tunnel syndrome, bilateral upper limbs (principal) | CPT/HCPCS: 73110; 99214 ==

== ENCOUNTER → 2022-06-13 12:32 | Outpatient (BNVA) | payer MEDICAID, SELFPAY | PROVIDERS: PCP Nurse Practitioner Family; Visit Provider Internal Medicine | DX: Z79.01 Long term (current) use of anticoagulants (principal) | CPT/HCPCS: 85610 ==

== ENCOUNTER → 2022-06-27 10:07 | Outpatient (BNVA) | payer MEDICAID, SELFPAY | PROVIDERS: PCP Nurse Practitioner Family; Visit Provider Internal Medicine Nephrology | DX: E55.9 Vitamin D deficiency, unspecified (principal); I10 Essential (primary) hypertension; N18.30 Chronic kidney disease, stage 3 unspecified; Z79.01 Long term (current) use of anticoagulants | CPT/HCPCS: 80069; 82043; 82306; 82542; 85025; 85610 ==

== ENCOUNTER → 2022-07-18 14:26 | Outpatient (BNVA) | payer MEDICAID, SELFPAY | PROVIDERS: PCP Nurse Practitioner Family; Visit Provider Internal Medicine | DX: Z79.01 Long term (current) use of anticoagulants (principal) | CPT/HCPCS: 85610 ==

== ENCOUNTER → 2022-07-24 09:41 | Outpatient (BNVA) | payer MEDICAID, SELFPAY | PROVIDERS: PCP Nurse Practitioner Family; Visit Provider Internal Medicine | DX: Z79.01 Long term (current) use of anticoagulants (principal) | CPT/HCPCS: 85610 ==

== ENCOUNTER → 2022-08-07 09:46 | Outpatient (BNVA) | payer MEDICAID, SELFPAY | PROVIDERS: PCP Nurse Practitioner Family; Visit Provider Student in an Organized Health Care Education/Training Program | DX: M22.42 Chondromalacia patellae, left knee (principal) | CPT/HCPCS: 20610; 99213; J3301 ==

== ENCOUNTER → 2022-08-21 13:34 | Outpatient (BNVA) | payer MEDICAID, SELFPAY | PROVIDERS: PCP Nurse Practitioner Family; Visit Provider Internal Medicine | DX: Z79.01 Long term (current) use of anticoagulants (principal) | CPT/HCPCS: 85610 ==

== ENCOUNTER 2022-08-22 05:48 | Day surgery (SDC) | payer MEDICAID, SELFPAY ==
[2022-08-21 10:00] VITALS: BMI 33.3
[2022-08-22] VITALS (7 sets, daily range): BP systolic 120–153; BP diastolic 65–97; PULSE 76–92; RESP 14–18; TEMP 36.1–36.7; O2SAT 93–100
--- NOTE | 2022-08-22 06:57 | W.PM.OPSUD ---
Surgery/Procedure H&P Update DATE OF PROCEDURE: August 22, 2022 DATE H&P PERFORMED: 06/12/22 CHANGES TO PREVIOUS DOCUMENTATION: nonr PREOP DIAGNOSIS: Left carpal tunnel syndrome PRIMARY INDICATION FOR PROCEDURE: Left carpal tunnel syndrome PLANNED PROCEDURE: Operation Date: 08/22/22 07:10 Proposed Procedures p Left wrist carpal tunnel [id number], G56.00(Left) - Lalit Lombardi DO
--- NOTE | 2022-08-22 06:59 | P.HP_ITS ---
Same Day Surgery H&P Indication for Procedure/HPI DATE OF PROCEDURE: August 22, 2022 CHIEF COMPLAINT/INDICATIONFOR SURGICAL PROCEDURE: Left carpal tunnel syndrome PREOP DIAGNOSIS: Left carpal tunnel syndrome PLANNED PROCEDURE: Operation Date: 08/22/22 07:10 Proposed Procedures p Left wrist carpal tunnel [id number], G56.00(Left) - Lalit Lombardi DO Medications/Allergies* Home Medications Medication Instructions Recorded Confirmed Type hydrocodone 10 mg-acetaminophen 1 tab PO DAILY PRN pain 07/13/21 08/22/22 History 325 mg tablet acyclovir 400 mg tablet 400 mg PO DAILY 11/30/21 08/22/22 History diclofenac sodium 1 % topical gel 2 g topical QID PRN Pain 11/30/21 08/22/22 History (Voltaren Arthritis Pain) ergocalciferol (vitamin D2) 1,250 1,250 mcg PO Q7D 11/30/21 08/22/22 History mcg (50,000 unit) capsule folic acid 1 mg tablet 1 mg PO DAILY 11/30/21 08/22/22 History warfarin 6 mg tablet 6 mg PO DIRECTED 08/21/22 08/22/22 History Allergies/Adverse Reactions Allergy/AdvReac Type Severity Reaction Status Date / Time Sulfa (Sulfonamide Allergy Intermediate Anger Verified 08/22/22 06:04 Antibiotics) cephalexin [From Keflex] Allergy Unknown Verified 08/22/22 06:04 penicillin V Allergy Unknown Verified 08/22/22 06:04 Pertinent History/Comorbid Conditions* Medical History (Updated 06/16/22 @ 20:00 by Lalit Lombardi DO) Bilateral carpal tunnel syndrome Bipolar disorder, current episode depressed, moderate Chest pain Chondromalacia of left patellofemoral joint Chronic bronchitis Chronic low back pain COPD (chronic obstructive pulmonary disease) COPD exacerbation Dyslipidemia Flu-like symptoms Generalized anxiety disorder GERD (gastroesophageal reflux disease) Hepatitis C Hypothyroid Insomnia Laceration of scalp Left hip pain Medication management Obesity Oral herpes simplex infection Psychiatric care Sleep apnea Tobacco abuse Urinary incontinence Urinary tract infection Vitamin D deficiency Vitamin D deficiency Warfarin anticoagulation Surgical History (Updated 05/16/19 @ 14:06 by Best Mix MD) H/O mitral valve replacement with mechanical valve Family History (Updated 02/11/20 @ 11:17 by Dayanara Ambrosio LPN) Diabetes Grandfather Grandmother CAD (coronary artery disease) Father Hyperlipidemia Mother Cancer Father Hypertension Brother Mother Social History Smoking and tobacco status: never smoked Alcohol intake: never Lives independently: Yes Household members: spouse Marital status: Current occupational status: disabled History of recent travel: No Current gender identity: Female Pertinent Exam Findings alert, oriented x 3, operative site marked and procedure specific exam findings Examination left upper extremity negative Spurling's negative Tinel's left shoulder and elbow normal range of motion of shoulder and elbow.? Positive media n nerve compression test at the wrist as well as positive Tinel's and positive Phalen's on the right wrist.? Classic findings consistent with carpal tunnel syndrome and decree sensation in the median nerve distribution.? Normal sensation to the ulnar nerve distribution radial nerve distribution.? No significant thenar atrophy noted however in testing thenar strength there is slight weakness noted.? No intrinsic atrophy noted.? Examination demonstrates negative Kelly's, notable pain at the base of the thumb. Recommendations Surgery/Procedure today Other Plans: Patient here today and elects proceed with left carpal tunnel release. Patient understands risk benefits complication alternatives of surgery and agrees to proceed with surgical intervention all questions answered. Coding Level of Care Code Acute Code for Chg Fwd Diagnoses
[2022-08-22] MEDS: sodium chloride 0.9% 1,000 ML 30 ML IV (07:01)
[2022-08-22] MEDS: acetaminophen 1,000 MG/100 ML PIGGYBACK 400 MG IV (07:02)
[2022-08-22] MEDS: clindamycin 600 MG/50 ML PREMIX 100 MG IV (07:04)
[2022-08-22] MEDS: lidocaine-epi 1% 20 mL INJ INJECTION (07:27)
--- NOTE | 2022-08-22 07:52 | PM.OP2 ---
Brief Operative Note Date of procedure: 08/22/22 Pre-op diagnosis: Left carpal tunnel syndrome Post-op diagnosis: same Procedure Done: Left carpal tunnel release Surgeon: Lalit Lombardi Estimated blood loss (mL): 1 Complications: None Post-op Plan: Patient taken to PACU in stable condition recovering well. Patient received appropriate discharge instructions as well as pain medication postoperatively. She will follow-up with me in the office in 2 weeks Contact the office for any questions or concerns Condition: stable Disposition: same day Coding Level of Care Code Acute Code for Maynor [facility]
--- NOTE | 2022-08-22 07:53 | PM.PACU ---
PACU note Narrative: Patient taken to PACU in stable condition recovering well. Following commands. Pain controlled. Decreased sensation secondary to local anesthesia. Fingertips are warm well perfused with capillary refill less than 2 seconds. Dressing on in place clean dry and intact is able to wiggle fingers. Exam: awake Disposition: discharged
--- NOTE | 2022-08-22 07:54 | P.OP_ITS ---
Operative Report Date of procedure: August 22, 2022 Pre-op diagnosis: Preop Diagnosis Left carpal tunnel syndrome Procedure: Post-op diagnosis: Same Procedure done: Left carpal tunnel release Surgeon: Lalit Lombardi DO Anesthesia: MAC (Local) Estimated blood loss: 1 mL Tourniquet time 9 minutes IV fluids: See anesthesia record Complications: None Findings: See operative report narrative Condition: stable Disposition: same day Brief History: Patient is a pleasant 61-year-old female with bilateral carpal tunnel syndrome. She has been worked up in the outpatient setting findings and physical examination consistent with this. Patient states she has had EMG/NCS study in the past admitted consistent with bilateral carpal tunnel syndrome. On examination she does have weakness on thenar stress but no significant atrophy at this time. We talked about treatment options far as nonoperative and operative intervention. Since she is already having weakness we talked about nonoperative and operative intervention ultimately given she is already having some signs of weakness would recommend surgical intervention of a left carpal tunnel release which is the 1 she would like to start off with. Through shared decision making in detail out of her risk benefits complication alternatives with surgical nonsurgical treatment options she agrees to proceed with surgical intervention of the left carpal tunnel release with staged fashion planning on doing the right side at a later date. Patient understands and agrees with current plan. All questions answered. She is on Coumadin at baseline and this is controlled and managed by her primary care provider. At this point in time given this is a carpal tunnel release and a small wrist and hand procedure she is okay to continue her Coumadin around the surgery and does not have to have it discontinued prior to surgery. Procedure: Patient seen and evaluated in the preoperative holding area.? Consent was reviewed and signed with patient.? Correct extremity was marked.? Patient was seen evaluated by the anesthesia department once cleared for surgery was brought back to the operative suite.? Placement was placed onto the OR table in supine position all bony prominences were well-padded patient properly secured to the bed.? Left upper extremity was then placed onto an armboard.? A nonsterile tourniquet was applied to the left upper arm.? Patient underwent anesthesia per the anesthesia department.? Patient's left upper extremity was then prepped and draped in standard orthopedic fashion.? Final timeout performed.? Patient received appropriate preoperative antibiotics. Under sterile aseptic technique patient received local anesthesia over the preplanned carpal tunnel incision site. Esmarch was used to exsanguinate the left upper extremity and tourniquet was insufflated to 250 mmHg. A standard mini open carpal tunnel incision was made.? Starting distally at Kinney's cardinal line in line with the fourth ray extending proximally distal to the wrist crease centered over the carpal tunnel.? Sharp scalpel incision was made through skin and subcutaneous tissue.? Self-retaining retractor was placed and the palmar fascia was identified.? This was then split longitudinally and direct visualization of the transverse carpal ligament was then made.? I then utilizing scalpel feathered through the transverse carpal ligament until I entered the floor of the transverse carpal tunnel ligament into the carpal tunnel.? Next I switched to dissection scissors and completed my release of the transverse carpal ligament distally with care to protect the recurrent motor branch.? I completely released into the palmar fat and until no entrapment was noted distally.? Care was made to protect the superficial palmar arch during my distal dissection.? Next I then placed a [place] underneath the transverse carpal tunnel ligament to protect the contents of the carpal tunnel and subsequently utilizing dissection scissors under loupe magnification completely released the transverse carpal ligament proximally into the median antebrachial fascia.? Care was made to protect the palmar cutaneous branch by keeping my scissors curved ulnarly.? Once completely released, I then placed my [place] and had appropriate decompression of the carpal tunnel proximally as well as distally.? I then inspected the contents of the carpal tunnel which showed an hourglass shape of the median nerve showing its compression.? No masses were noted.? Tendons appeared healthy.? Wound was then thoroughly irrigated.? Tourniquet deflated.? Hemostasis satisfactory with bipolar electrocautery.? I then closed the incision with interrupted nylon stitches.? Xeroform 4 x 4's and a bulky soft dressing was applied to the left upper extremity.? Patient was then awakened from anesthesia and taken to PACU in stable condition.? Patient tolerated procedure without complications. Disposition: Patient taken to PACU in stable condition recovering well.? Dressing clean dry and intact.? Patient will receive appropriate discharge instructions as well as pain medication postoperatively.? Patient to follow-up with me in the office in 2 weeks.? They understand they may be weightbearing as tolerated to the left hand.? Patient should keep incision clean dry and intact.? Patient understands if any questions or concerns may contact the office.
[2022-08-22] MEDS: HYDROcodone-acetaminophen 5-325 mg Tablet 1 TAB PO (08:23)
--- NOTE | 2022-08-22 09:25 | P.ANESASSM_ITS ---
Pre-Anesthetic Assessment Height/Weight: Height 1.63 m Weight 87.997 kg Temp Pulse Resp BP Pulse Ox O2 Del Method 97.9 F 76 18 136/82 100 Room Air 08/22/22 08:16 08/22/22 08:28 08/22/22 08:28 08/22/22 08:28 08/22/22 08:28 08/22/22 08:28 Preop Diagnosis: Left carpal tunnel syndrome Operation Date: 08/22/22 07:10 Proposed Procedures p Left wrist carpal tunnel [id number], G56.00(Left) - Lalit Lombardi DO Familial anesthetic complications: none Was Beta Matias taken within 24 hours: N/A Was Clonidine taken within 24 hours: N/A Last intake: Intake Last Liquid Date 08/21/22 Last Liquid Time 17:30 Last Solid Date 08/21/22 Last Solid Time 17:30 Social Tobacco and No alcohol Exam alert, oriented x 3, clear to auscultation bilaterally and regular rate & rhythm Airway Submandibular: within normal limits Cervical ROM: within normal limits Mallampati: Class II Dentition: chipped Comments: Comments: Missing several Pulmonary Chronic Obstructive Pulmonary Disease and Sleep Apnea CV/HEM Hypertension MVR, tricuspid ring Hepatic Hepatitis (B) GI Gastroesophageal Reflux Disease Metabolic Morbid Obesity and Thyroid Disease Musc/skel Lower Back Pain and Osteoarthritis/DJD Neuropsych Anxiety and Depression Anesthetic Plan ASA status: 3 Anesthesia: Choice Medications/Allergies Home Medications Medication Instructions Recorded Confirmed Last Taken Type hydrocodone 10 mg-acetaminophen 1 tab PO DAILY PRN pain 07/13/21 08/22/22 08/22/22 History 325 mg tablet acyclovir 400 mg tablet 400 mg PO DAILY 11/30/21 08/22/22 08/21/22 History diclofenac sodium 1 % topical gel 2 g topical QID PRN Pain 11/30/21 08/22/22 08/21/22 History (Voltaren Arthritis Pain) ergocalciferol (vitamin D2) 1,250 1,250 mcg PO Q7D 11/30/21 08/22/22 08/21/22 History mcg (50,000 unit) capsule folic acid 1 mg tablet 1 mg PO DAILY 11/30/21 08/22/22 08/21/22 History gabapentin 300 mg capsule 300 mg PO BID #60 caps 12/28/21 08/22/22 08/22/22 Rx tenofovir disoproxil fumarate 300 See Rx Instructions .Route 01/10/22 08/22/22 08/21/22 Rx mg tablet .COMPLEX #90 tabs rosuvastatin 5 mg tablet 5 mg PO BEDTIME #90 tabs 01/16/22 08/22/22 08/21/22 Rx CPAP machine portable #1 ea 01/20/22 08/07/22 Unknown Rx albuterol sulfate 2.5 mg/3 mL 2.5 mg (3 mL) inhalation QID PRN 05/03/22 08/22/22 08/22/22 Rx (0.083 %) solution for nebulization shortness of breath or wheezing #75 mL famotidine 20 mg tablet See Rx Instructions .Route 05/25/22 08/22/22 08/21/22 Rx .COMPLEX #60 tabs oxybutynin chloride 15 mg See Rx Instructions .Route 05/25/22 08/22/22 08/21/22 Rx tablet,extended release 24 hr .COMPLEX #30 tabs umeclidinium 62.5 mcg-vilanterol See Rx Instructions .Route 05/25/22 08/22/22 08/22/22 Rx 25 mcg/actuation powdr for .COMPLEX #60 blisters inhalation (Anoro Ellipta) ipratropium 20 mcg-albuterol 100 See Rx Instructions .Route 05/26/22 08/22/22 08/22/22 Rx mcg/actuation mist for inhalation .COMPLEX #4 grams (Combivent Respimat) aspirin 81 mg tablet,delayed 81 mg PO DAILY #90 tabs 06/14/22 08/22/22 08/21/22 Rx release cetirizine 10 mg tablet See Rx Instructions .Route 06/19/22 08/22/22 08/21/22 Rx .COMPLEX #30 tabs levothyroxine 112 mcg tablet See Rx Instructions .Route 06/19/22 08/22/22 08/22/22 Rx .COMPLEX #30 tabs verapamil 240 mg tablet,extended See Rx Instructions .Route 06/19/22 08/22/22 08/21/22 Rx release .COMPLEX #15 tabs ferrous sulfate 325 mg (65 mg See Rx Instructions .Route 07/13/22 08/22/22 08/21/22 Rx iron) tablet (FeroSul) .COMPLEX #60 tabs warfarin 1 mg tablet 1 mg PO DAILY #90 tabs 07/13/22 08/22/22 08/15/22 Rx duloxetine 60 mg capsule,delayed 60 mg PO BID 90 days #180 caps 08/10/22 08/22/22 08/21/22 Rx release (Cymbalta) cariprazine 3 mg capsule 3 mg PO DAILY #30 caps 08/11/22 08/22/22 08/21/22 Rx lamotrigine 200 mg tablet 200 mg PO DAILY 30 days #30 tabs 08/11/22 08/22/22 08/21/22 Rx zolpidem 12.5 mg tablet,extended 12.5 mg PO .at bedtime. #30 tabs 08/11/22 08/22/22 08/21/22 Rx release,multiphase (Ambien CR) hydroxyzine HCl 25 mg tablet 25 mg PO TID PRN itching, anxiety 08/18/22 08/22/22 08/21/22 Rx #90 tabs warfarin 6 mg tablet 6 mg PO DIRECTED 08/21/22 08/22/22 08/20/22 History hydrocodone 5 mg-acetaminophen 325 1 tab PO Q6H PRN pain 7 days #28 08/22/22 Unknown Rx mg tablet tabs ondansetron 4 mg disintegrating 4 mg PO DAILY 5 days #5 tabs 08/22/22 Unknown Rx tablet Allergies Allergy/AdvReac Type Severity Reaction Status Date / Time Sulfa (Sulfonamide Allergy Intermediate Anger Verified 08/22/22 06:04 Antibiotics) cephalexin [From Keflex] Allergy Unknown Verified 08/22/22 06:04 penicillin V Allergy Unknown Verified 08/22/22 06:04 [facility] Anesthesia Medical History Bilateral carpal tunnel syndrome Bipolar disorder, current episode depressed, moderate Chest pain Chondromalacia of left patellofemoral joint Chronic bronchitis Chronic low back pain COPD (chronic obstructive pulmonary disease) COPD exacerbation Dyslipidemia Flu-like symptoms Generalized anxiety disorder GERD (gastroesophageal reflux disease) Hepatitis C Hypothyroid Insomnia Laceration of scalp Left hip pain Medication management Obesity Oral herpes simplex infection Psychiatric care Sleep apnea Tobacco abuse Urinary incontinence Urinary tract infection Vitamin D deficiency Vitamin D deficiency Warfarin anticoagulation Surgical History H/O mitral valve replacement with mechanical valve Family History Father CAD (coronary artery disease) Cancer Brother Hypertension Mother Hypertension Hyperlipidemia Grandfather Diabetes Grandmother Diabetes Social History Smoking and tobacco status: never smoked Alcohol intake: never Lives independently: Yes Household members: spouse Marital status: Current occupational status: disabled History of recent travel: No Current gender identity: Female Data Anesthesia Cardiac Studies: No Data to Display
--- NOTE | 2022-08-22 14:41 | ANE.PACU2 ---
Inpatient post-anesthesia follow up: Airway intact: Yes Vital signs: Temperature 97.9 F Pulse Rate 76 Respiratory Rate 18 Blood Pressure 136/82 Pulse Oximetry 100 Oxygen Delivery Me thod Room Air Oxygen Flow Rate Fraction of Inspir ed Oxygen Hydration adequate: Yes Nausea and vomiting: No Pain level: 2 Mental status: Baseline
== END 2022-08-22 08:43 | disposition home or self-care (01) ==
PROVIDERS: PCP Nurse Practitioner Family; Visit Provider Student in an Organized Health Care Education/Training Program
PROC: (CPT 64721; principal; 2022-08-22 07:00)
DX: G56.02 Carpal tunnel syndrome, left upper limb (principal); Z79.891 Long term (current) use of opiate analgesic; Z79.01 Long term (current) use of anticoagulants; E55.9 Vitamin D deficiency, unspecified; E03.9 Hypothyroidism, unspecified; J44.9 Chronic obstructive pulmonary disease, unspecified; E66.9 Obesity, unspecified; Z68.33 Body mass index [BMI] 33.0-33.9, adult; G47.30 Sleep apnea, unspecified; K21.9 Gastro-esophageal reflux disease without esophagitis; I10 Essential (primary) hypertension; Z79.82 Long term (current) use of aspirin; M19.90 Unspecified osteoarthritis, unspecified site; G89.29 Other chronic pain; F41.9 Anxiety disorder, unspecified; F32.A Depression, unspecified
CPT/HCPCS: 64721; J0131; J2250; J2704; J2795; J3010; J3490; J7030

== ENCOUNTER → 2022-09-05 08:25 | Outpatient (BNVA) | payer MEDICAID, SELFPAY | PROVIDERS: PCP Nurse Practitioner Family; Visit Provider Nurse Practitioner Family | DX: Z98.890 Other specified postprocedural states (principal) | CPT/HCPCS: 99024 ==

== ENCOUNTER → 2022-09-07 10:46 | Outpatient (BNVA) | payer MEDICAID, SELFPAY | PROVIDERS: PCP Nurse Practitioner Family; Visit Provider Nurse Practitioner Family | DX: M22.42 Chondromalacia patellae, left knee (principal) | CPT/HCPCS: 20610; 73560; 73565; 99213 ==

== ENCOUNTER → 2022-09-15 14:32 | Outpatient (BNVA) | payer MEDICAID, SELFPAY | PROVIDERS: PCP Nurse Practitioner Family; Visit Provider Internal Medicine | DX: Z79.01 Long term (current) use of anticoagulants (principal) | CPT/HCPCS: 85610 ==

== ENCOUNTER → 2022-09-27 09:57 | Outpatient (BNVA) | payer MEDICAID, SELFPAY | PROVIDERS: PCP Nurse Practitioner Family; Visit Provider Nurse Practitioner Family | DX: M25.562 Pain in left knee (principal) | CPT/HCPCS: 99213 ==

== ENCOUNTER 2022-09-27 11:09 | Outpatient (CLI) | payer MEDICAID, SELFPAY ==
[2022-09-27 12:27] LABS: Basophils # 0.1 10^3/uL (0.0-0.1); Eosinophils # 0.3 10^3/uL (0.0-0.8); Eosinophils % 4.4 %; Hematocrit 39.8 % (37.0-47.0); Hemoglobin 12.8 g/dL (11.5-15.3); Lymphocytes # 1.3 10^3/uL (0.8-4.8); Lymphocytes % 21.7 %; Mean Corpuscular HGB Conc 32.2 g/dL (30.0-36.0); Mean Corpuscular Hemoglobin 31.5 pg (28.0-34.0); Mean Platelet Volume 10.8 fL (7.4-10.4); Monocytes # 0.6 10^3/uL (0.2-0.9); Monocytes % 10.3 %; Neutrophils # 3.69 10^3/uL (1.8-7.7); Neutrophils % 62.4 %; Nucleated Red Blood Cells % 0 %; Platelet Count 273 10^3/cmm (130-400); Red Blood Count 4.06 10^6/uL (4.1-5.3); Red Cell Distribution Width 12.9 % (12.1-15.1); White Blood Count 5.9 10^3/uL (4.0-10.0)
[2022-09-27 12:42] LABS: Estmated Average Glucose 114; Hemoglobin A1C 5.6 % (4.0-6.0)
[2022-09-27 13:03] LABS: 25 Hydroxy Vitamin D 33 ng/mL (30-100); Alanine Aminotransferase 20 U/L (0-33); Albumin Level 4.2 g/dL (3.5-5.2); Alkaline Phosphatase 85 U/L (35-105); Anion Gap 12.3 (5-19); Aspartate Amino Transferase 18 U/L (0-32); Blood Urea Nitrogen 15 mg/dL (8-23); Calcium 8.8 mg/dL (8.5-10.5); Carbon Dioxide 27 mmol/L (22-29); Chloride 102 mmol/L (98-107); Chol HDL Ratio 4.64 mg/dL (0.0-4.40); Cholesterol 181 mg/dL (0-200); Globulin 2.6 g/dL (1.3-4.6); Glomerular Filtration Rate 50.5 mL/min (90-130); Glucose 93 mg/dL (65-115); HDL Cholesterol 39 mg/dL (60-100); LDL Cholesterol Calculated 78 mg/dL (50-129); Osmolality Calculated 285 mOsm/kg (285-295); Potassium 4.3 mmol/L (3.5-5.1); Sodium 137 mmol/L (136-145); Thyroid Stimulating Hormone 3.15 uIU/mL (0.27-4.20); Total Bilirubin 0.2 mg/dL (0.15-1.2); Total Protein 6.8 g/dL (6.6-8.7); Triglycerides 318 mg/dL (0-150); Vitamin B12 277 pg/mL (232-1245)
[2022-09-27 13:09] LABS: INR 2.46 (0.83-1.21); Prothrombin Time (Patient) 27.6 Seconds (12.0-15.1)
== END 2022-09-27 11:10 | disposition home or self-care (01) ==
LOC: LAB 11:15
PROVIDERS: PCP Nurse Practitioner Family; Referring Provider Internal Medicine; Visit Provider Registered Nurse
DX: Z79.899 Other long term (current) drug therapy (principal); Z95.2 Presence of prosthetic heart valve; E55.9 Vitamin D deficiency, unspecified; E03.9 Hypothyroidism, unspecified; E78.5 Hyperlipidemia, unspecified
CPT/HCPCS: 36415; 80053; 80061; 82306; 82607; 83036; 84443; 85025; 85610

== ENCOUNTER 2022-09-27 14:29 | Outpatient (CLI) | payer MEDICAID, SELFPAY | END 2022-09-27 14:30 | disposition home or self-care (01) | LOC: SPT 14:29 | PROVIDERS: PCP Nurse Practitioner Family; Visit Provider Nurse Practitioner Family | DX: Z46.89 Encounter for fitting and adjustment of other specified devices (principal); M25.562 Pain in left knee; M22.42 Chondromalacia patellae, left knee | CPT/HCPCS: 97760; L1812 ==

== ENCOUNTER → 2022-10-19 13:29 | Outpatient (BNVA) | payer MEDICAID, SELFPAY | PROVIDERS: PCP Nurse Practitioner Family; Visit Provider Internal Medicine | DX: Z79.01 Long term (current) use of anticoagulants (principal); I34.89 Other nonrheumatic mitral valve disorders; Z95.2 Presence of prosthetic heart valve; I10 Essential (primary) hypertension | CPT/HCPCS: 85610 ==

== ENCOUNTER → 2022-10-20 08:58 | Outpatient (BNVA) | payer MEDICAID, SELFPAY | PROVIDERS: PCP Nurse Practitioner Family; Visit Provider Nurse Practitioner Family | DX: I10 Essential (primary) hypertension (principal); Z95.2 Presence of prosthetic heart valve | CPT/HCPCS: 99214 ==

== ENCOUNTER → 2022-10-27 10:26 | Outpatient (BNVA) | payer MEDICAID, SELFPAY | PROVIDERS: PCP Nurse Practitioner Family; Visit Provider Internal Medicine | DX: Z79.01 Long term (current) use of anticoagulants (principal) | CPT/HCPCS: 85610 ==

== ENCOUNTER → 2022-11-02 08:15 | Outpatient (BNVA) | payer MEDICAID, SELFPAY | PROVIDERS: PCP Nurse Practitioner Family; Visit Provider Internal Medicine | DX: Z79.01 Long term (current) use of anticoagulants (principal) | CPT/HCPCS: 85610 ==

== ENCOUNTER → 2022-11-08 16:38 | Outpatient (BNVA) | payer MEDICAID, SELFPAY | PROVIDERS: PCP Nurse Practitioner Family; Visit Provider Internal Medicine | DX: Z79.01 Long term (current) use of anticoagulants (principal) | CPT/HCPCS: 85610 ==

== ENCOUNTER 2022-11-14 10:12 | Outpatient (CLI) | payer MEDICAID, SELFPAY ==
--- NOTE | 2022-11-14 10:15 | USCV_ITS ---
Carmella Altman Age: 62 Gender: F : 1960 Exam Date: 11/14/2022 10:24 Ordering Phys: Kalpana Lilly Technologist: Exam Location: [facility] [place] Indication: metal mvp pros BP: 130 / 80 HR: 78 Rhythm: Sinus Technical Quality: Adequate MEASUREMENTS (Male / Female) Normal Values 2D ECHO LV Diastolic Diameter PLAX 3.9 cm 4.2 - 5.9 / 3.9 - 5.3 cm LV Systolic Diameter PLAX 2.2 cm IVS Diastolic Thickness 1.3 cm 0.6 - 1.0 / 0.6 - 0.9 cm IVS Systolic Thickness 1.6 cm LVPW Diastolic Thickness 1.1 cm 0.6 - 1.0 / 0.6 - 0.9 cm LVPW Systolic Thickness 1.7 cm LVOT Diameter 1.9 cm LV Ejection Fraction 2D Teich 75.7 % LV Ejection Fraction MOD 2C 77.2 % LV Ejection Fraction 2C AL 77.4 % LA Diameter 4.6 cm IVC Diameter 2.4 cm M-MODE Aortic Annulus Diameter 3.5 cm LA Ao Ratio MM 1.5 DOPPLER AV Peak Velocity 210.0 cm/s LVOT Peak Velocity 121.0 cm/s AV Area Cont Eq vti 1.6 cm squared AV Area Cont Eq pk 1.7 cm squared MV Area PHT 4.9 cm squared Mitral E to A Ratio 0.9 MV E' Velocity 78.0 cm/s Mitral E to MV E' Ratio 13.9 Mitral E to LV E' Lateral Ratio 16.5 Mitral E to LV E' Septal Ratio 11.9 TR Peak Velocity 207.7 cm/s TR Peak Gradient 17.3 mmHg TV Peak E Velocity 129.0 cm/s Right Atrial Pressure 3.0 mmHg Pulmonary Artery Systolic Pressu 20.3 mmHg RV Acceleration Time 0.2 s FINDINGS Left Ventricle Normal left ventricular size and systolic function, EF 73 %. Mild left ventricular hypertrophy. No regional wall motion abnormalities. Right Ventricle The right ventricle is normal in size and function. Right Atrium The right atrium is normal in size. Left Atrium The left atrium is normal in size. Mitral Valve The prosthetic valve at the mitral position appears to be well- seated with a normal disc motion. The peak velocity across the valve was 2.1 m/s. The mitral valve area by pressure half-time was 2.04 cm squared Aortic Valve Mild aortic valve regurgitation. Thickened aortic valve. Tricuspid Valve The leaflet morphology could not be delineated that well.trace tricuspid valve regurgitation. Pulmonic Valve No gross abnormalities noted Pericardium Normal pericardium without effusion. Aorta Normal ascending aorta dimension. IVC Inferior vena cava not visualized. CONCLUSIONS Normal left ventricular size and systolic function, EF 73 %. Mild left ventricular hypertrophy. No regional wall motion abnormalities. The prosthetic valve at the mitral position appears to be well- seated with a normal disc motion. The peak velocity across the valve was 2.1 m/s. The mitral valve area by pressure half-time was 2.04 cm squared. Mild aortic valve regurgitation. Features of aortic valve sclerosis. Estimated pulmonary artery peak systolic pressure 20 mmHg. There are no intracardiac masses. There is no pericardial effusion. Compared to the study from 12/11/2016, there may not be significant change Dr Denzel Maier MD [facility] (Electronically Signed) Final Date: 17 November 2022 19:25 S
== END 2022-11-14 10:13 | disposition home or self-care (01) ==
PROVIDERS: PCP Nurse Practitioner Family; Visit Provider Nurse Practitioner Family
DX: Z95.2 Presence of prosthetic heart valve (principal); I51.7 Cardiomegaly; I35.1 Nonrheumatic aortic (valve) insufficiency
CPT/HCPCS: 93306; 99214

== ENCOUNTER → 2022-11-16 08:40 | Outpatient (BNVA) | payer MEDICAID, SELFPAY | PROVIDERS: PCP Nurse Practitioner Family; Visit Provider Internal Medicine | DX: Z79.01 Long term (current) use of anticoagulants (principal) | CPT/HCPCS: 85610 ==

== ENCOUNTER → 2022-11-27 09:21 | Outpatient (BNVA) | payer MEDICAID, SELFPAY | PROVIDERS: PCP Nurse Practitioner Family; Visit Provider Nurse Practitioner Family | DX: Z79.01 Long term (current) use of anticoagulants (principal) | CPT/HCPCS: 85610 ==

== ENCOUNTER → 2022-12-12 09:35 | Outpatient (BNVA) | payer MEDICAID, SELFPAY | PROVIDERS: PCP Nurse Practitioner Family; Visit Provider Internal Medicine | DX: Z79.01 Long term (current) use of anticoagulants (principal) | CPT/HCPCS: 85610 ==

== ENCOUNTER → 2022-12-22 14:14 | Outpatient (BNVA) | payer MEDICAID, SELFPAY | PROVIDERS: PCP Nurse Practitioner Family; Visit Provider Internal Medicine | DX: Z79.01 Long term (current) use of anticoagulants (principal) | CPT/HCPCS: 85610 ==

== ENCOUNTER → 2022-12-25 10:24 | Outpatient (BNVA) | payer MEDICAID, SELFPAY | PROVIDERS: PCP Nurse Practitioner Family; Visit Provider Registered Nurse | DX: N18.9 Chronic kidney disease, unspecified (principal) | CPT/HCPCS: 80069; 82043; 82306; 82542; 85025; 85610 ==

== ENCOUNTER → 2023-01-24 09:18 | Outpatient (BNVA) | payer MEDICAID, SELFPAY | PROVIDERS: PCP Nurse Practitioner Family; Visit Provider Nurse Practitioner Family | DX: M79.645 Pain in left finger(s) (principal) | CPT/HCPCS: 73140; 85610 ==

== ENCOUNTER 2023-01-25 08:47 | Outpatient (CLI) | payer MEDICAID, OTHER, SELFPAY ==
--- NOTE | 2023-01-25 08:30 | US_ITS ---
WS: [id number] ULTRASOUND RENAL TECHNIQUE: Ultrasound examination of both kidneys. CLINICAL INFORMATION: FLANK PAIN COMPARISON: None. FINDINGS: RIGHT: Right kidney is normal in size and appearance. Echogenicity: Normal. Cortical thickness: 1.5 cm; Normal. Hydronephrosis: None. Perinephric fluid: None. Right kidney measures: 8.6 cm x 4.5 cm x 4.7 cm. LEFT: Left kidney is normal in size and appearance. Echogenicity: Normal. Cortical thickness: 1.3 cm; Normal. Hydronephrosis: None. Perinephric fluid: None. Left kidney measures: 9.1 cm x 4.7 cm x 4.8 cm. Normal visualized aorta. Normal bladder. IMPRESSION: 1. No hydronephrosis in either kidney. 2. Normal bladder. 3. Normal visualized abdominal aorta.
== END 2023-01-25 08:48 | disposition home or self-care (01) ==
PROVIDERS: PCP Nurse Practitioner Family; Visit Provider Registered Nurse
DX: R10.9 Unspecified abdominal pain (principal)
CPT/HCPCS: 76770

== ENCOUNTER → 2023-02-08 16:23 | Outpatient (BNVA) | payer MEDICAID, OTHER, SELFPAY | PROVIDERS: PCP Nurse Practitioner Family; Visit Provider Internal Medicine | DX: Z79.01 Long term (current) use of anticoagulants (principal) | CPT/HCPCS: 85610 ==

== ENCOUNTER → 2023-02-15 11:22 | Outpatient (BNVA) | payer MEDICAID, OTHER, SELFPAY | PROVIDERS: PCP Nurse Practitioner Family; Visit Provider Internal Medicine | DX: Z79.01 Long term (current) use of anticoagulants (principal) | CPT/HCPCS: 85610 ==

== ENCOUNTER → 2023-02-21 10:35 | Outpatient (BNVA) | payer MEDICAID, OTHER, SELFPAY | PROVIDERS: PCP Nurse Practitioner Family; Visit Provider Internal Medicine | DX: Z79.01 Long term (current) use of anticoagulants (principal) | CPT/HCPCS: 85610 ==

== ENCOUNTER → 2023-02-28 10:16 | Outpatient (BNVA) | payer MEDICAID, SELFPAY | PROVIDERS: PCP Nurse Practitioner Family; Visit Provider Internal Medicine | DX: Z79.01 Long term (current) use of anticoagulants (principal) | CPT/HCPCS: 85610 ==

== ENCOUNTER 2023-03-01 10:08 | Outpatient (CLI) | payer MEDICAID, SELFPAY ==
[2023-03-01 11:11] LABS: INR 2.73 (0.83-1.21); Prothrombin Time (Patient) 29.9 Seconds (12.0-15.1)
== END 2023-03-01 10:09 | disposition home or self-care (01) ==
PROVIDERS: PCP Nurse Practitioner Family; Visit Provider Internal Medicine
DX: Z79.01 Long term (current) use of anticoagulants (principal)
CPT/HCPCS: 36415; 85610

== ENCOUNTER → 2023-03-07 10:33 | Outpatient (BNVA) | payer MEDICAID, SELFPAY | PROVIDERS: PCP Nurse Practitioner Family; Visit Provider Internal Medicine | DX: Z79.01 Long term (current) use of anticoagulants (principal) | CPT/HCPCS: 85610 ==

== ENCOUNTER → 2023-03-15 12:19 | Outpatient (BNVA) | payer MEDICAID, SELFPAY | PROVIDERS: PCP Nurse Practitioner Family; Visit Provider Internal Medicine | DX: Z79.01 Long term (current) use of anticoagulants (principal) | CPT/HCPCS: 85610 ==

== ENCOUNTER → 2023-03-21 09:18 | Outpatient (BNVA) | payer MEDICAID, SELFPAY | PROVIDERS: PCP Nurse Practitioner Family; Visit Provider Internal Medicine | DX: Z79.01 Long term (current) use of anticoagulants (principal) | CPT/HCPCS: 85610 ==

== ENCOUNTER → 2023-03-22 10:29 | Outpatient (BNVA) | payer MEDICAID, SELFPAY | PROVIDERS: PCP Nurse Practitioner Family; Visit Provider Nurse Practitioner Family | DX: E03.9 Hypothyroidism, unspecified (principal); I10 Essential (primary) hypertension; Z79.899 Other long term (current) drug therapy; E55.9 Vitamin D deficiency, unspecified; E78.5 Hyperlipidemia, unspecified; Z12.31 Encounter for screening mammogram for malignant neoplasm of breast; Z79.01 Long term (current) use of anticoagulants | CPT/HCPCS: 80053; 80061; 81003; 82306; 84443; 85025; 85610 ==

== ENCOUNTER 2023-03-27 10:14 | Emergency (ER) | payer MEDICAID, SELFPAY ==
--- NOTE | 2023-03-27 10:20 | CTR_ITS ---
PROCEDURE INFORMATION: Exam: CT Head Without Contrast Exam date and time: 03/27/2023 10:56 AM Age: 62 years old Clinical indication: Injury or trauma; Fall; Blunt trauma (contusions or hematomas); Without loss of consciousness TECHNIQUE: Imaging protocol: Computed tomography of the head without contrast. Radiation optimization: All CT scans at this facility use at least one of these dose optimization techniques: automated exposure control; mA and/or kV adjustment per patient size (includes targeted exams where dose is matched to clinical indication); or iterative reconstruction. REPORTING DATA: Count of CT and Cardiac NM exams in prior 12 months: This patient has received 0 known CTs and 0 known cardiac nuclear medicine studies in the 12 months prior to the current study. COMPARISON: CT head wo con* [id number] 12/19/2016 12:26 PM RADIATION DOSE METRICS: Total DLP (mGy-cm): 1087.42 FINDINGS: Brain: Mild periventricular white matter hypodensities are identified. There is no evidence of acute parenchymal hemorrhage, extra-axial collection, or acute infarction. There is no mass effect, midline shift, or downward herniation. Cerebral ventricles: No ventriculomegaly. Paranasal sinuses: Visualized sinuses are unremarkable. No fluid levels. Mastoid air cells: Visualized mastoid air cells are well aerated. Bones/joints: Unremarkable. No acute fracture. Soft tissues: Unremarkable. CT/CT head wo con* [id number] IMPRESSION: 1. No evidence of acute intracranial process. 2. Mild nonspecific white matter hypodensities. Differential considerations include chronic microvascular ischemic change, demyelinating disease, or gliosis from infectious/inflammatory source.
--- NOTE | 2023-03-27 10:20 | ECG_ITS ---
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 Measurements Intervals [place] Rate: 65 P: 42 TN: 266 QRS: 33 QRSD: 86 T: 54 QT: 451 QTc: 472 Interpretive Statements SINUS RHYTHM WITH FIRST DEGREE AV BLOCK ST abnormality in anterior leads Compared to ECG 12/19/2016 11:05:10 No significant change. 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 [id number]
[2023-03-27 10:25] VITALS: BP 155/82; PULSE 69; RESP 16; TEMP 36.7; O2SAT 100; BMI 36.1
[2023-03-27 10:48] LABS: Basophils # 0.1 10^3/uL (0.0-0.1); Eosinophils # 0.1 10^3/uL (0.0-0.8); Hematocrit 39.7 % (36-47); Lymphocytes # 1.2 10^3/uL (0.8-4.8); Lymphocytes % 19.5 %; Mean Corpuscular Volume 96.8 fl (85-98); Mean Platelet Volume 10.8 fL (7.4-10.4); Monocytes # 0.6 10^3/uL (0.2-0.9); Monocytes % 10.1 %; Neutrophils # 3.99 10^3/uL (1.8-7.7); Neutrophils % 66.9 %; Nucleated Red Blood Cells % 0 %; Platelet Count 246 10^3/cmm (157-399); Red Cell Distribution Width 12.9 % (12.1-15.1); White Blood Count 5.96 10^3/uL (3.29-11.43)
[2023-03-27 10:52] VITALS: BP 151/82; PULSE 62; RESP 18; O2SAT 98
[2023-03-27 11:10] VITALS: RESP 18; O2SAT 100
[2023-03-27] MEDS: ondansetron 2 mg/ML SDV 2 mL 4 MG IVP (11:10)
[2023-03-27] MEDS: morphine 4 mg/mL SDV 1 mL IVP (11:10)
[2023-03-27 11:24] LABS: INR 2.01 (0.8-1.2)
[2023-03-27 11:49] VITALS: BP 130/79; PULSE 69; RESP 18; O2SAT 96
--- NOTE | 2023-03-27 12:02 | ED_ITS ---
HPI - Head Injury General: Chief complaint: Head Injury Stated complaint: head pain, fell Time Seen by Provider: 03/27/23 10:19 Source: patient Mode of arrival: ambulatory History of Present Illness: 62-year-old female presents emergency room with a headache she is on Coumadin for an artificial valve and fell and hit the toilet 2 to 3 days ago. She has been feeling dizziness and a headache since. She not had any vomiting. No nausea no visual changes but has been dizzy. MD Complaint: head injury Onset (ago): minute(s) Mechanism of Injury: fall Place: home Loss of Consciousness: no Location of injury: frontal Severity: mild Radiation: none Other Injuries: none Associated symptoms: Deny amnesia, confusion, nausea, neck pain, numbness, sync ope, tingling, vertigo, visual changes, vomiting or weakness Review of Systems Const: Denies: fever(s) or chills Card: Denies: syncope Resp: Denies: dyspnea GI: Denies: nausea or vomiting : Denies: dysuria, urinary frequency or urinary urgency Musc: Denies: neck pain Skin/Breast: Denies: rash Neuro: Denies: vertigo or confusion PFSH ED PFSH: Medical History Bilateral carpal tunnel syndrome Bipolar disorder, current episode depressed, moderate Breast cancer screening by mammogram Chest pain Chondromalacia of left patellofemoral joint Chronic bronchitis Chronic low back pain COPD (chronic obstructive pulmonary disease) COPD exacerbation Dyslipidemia Encounter for laboratory test Flu-like symptoms Generalized anxiety disorder GERD (gastroesophageal reflux disease) Hepatitis C Hypothyroid Insomnia Laceration of scalp Left hip pain Medication management Obesity Oral herpes simplex infection Psychiatric care Sleep apnea Tobacco abuse Urinary incontinence Urinary tract infection Vitamin D deficiency Vitamin D deficiency Warfarin anticoagulation Surgical History H/O mitral valve replacement with mechanical valve Family History Father CAD (coronary artery disease) Cancer Brother Hypertension Mother Hypertension Hyperlipidemia Grandfather Diabetes Grandmother Diabetes Social History Smoking and tobacco/nicotine status: never used tobacco/nicotine Alcohol intake: never Substance/Drug Use: never Lives independently: Yes Household members: spouse Marital status: Current occupational status: disabled Do you think of yourself as: Straight/Heterosexual Current gender identity: Female Physical Exam Const: COMMON NORMALS: no acute distress GENERAL APPEARANCE: cooperative and comfortable ORIENTATION/CONSCIOUSNESS: Yes awake, Yes oriented to person, Yes oriented to place and Yes oriented to time HENMT: COMMON NORMALS: normocephalic, atraumatic and hearing grossly normal bilaterally HEAD & SCALP: normocephalic and atraumatic Resp: COMMON NORMALS: normal respiratory effort, No retractions, No use of accessory muscles and clear to auscultation bilaterally AUSCULTATION: clear to auscultation bilaterally Cardio: COMMON NORMALS: regular rate, regular rhythm and No murmurs present (Cardio) RATE: regular rate RHYTHM: regular rhythm GI: COMMON NORMALS: Soft to palpation and No hepatosplenomegaly present AUSCULTATION: Yes normoactive bowel sounds PALPATION: Yes Soft to palpation, No Tenderness to palpation present (GI), No Guarding due to palpation present (GI) and Yes No hepatosplenomegaly present Extremity: COMMON NORMALS: normal to inspection, capillary refill normal, no clubbing, cyanosis or edema, no calf tenderness and no pedal edema Neuro: SENSORIUM/ORIENTATION: Yes oriented to person, Yes oriented to place and Yes oriented to time Skin: COMMON NORMALS: no rashes or lesions noted GENERAL SKIN EXAM: no rashes or lesions noted Course Vital Signs: Vital signs: Vital Signs Temperature 98.0 F 03/27/23 10:25 Pulse Rate 69 03/27/23 11:49 Respiratory Rate 18 03/27/23 11:49 Blood Pressure 130/79 03/27/23 11:49 Pulse Oximetry 96 03/27/23 11:49 Oxygen Delivery Me thod Room Air 03/27/23 11:49 MDM - Head Injury Medcial Decision Making Head CT unremarkable hemoglobin stable INR is actually subtherapeutic for goal given her Mechanical valve prosthesis. We will give her Lovenox to bridge, and contact her director of district office regarding Coumadin adjustment. Medical Records I reviewed the patient's medical records. Lab Data I reviewed the patient's lab results. 03/27/23 10:[address] 03/27/23 10:20 IMPRESSION: 1. No evidence of acute intracranial process. 2. Mild nonspecific white matter hypodensities. Differential considerations include chronic microvascular ischemic change, demyelinating disease, or gliosis from infectious/inflammatory source. Laboratory Results WBC 5.96 10^3/uL (3.29-11.43) 03/27/23 10:35 RBC 4.10 10^6/uL (3.85-5.65) 03/27/23 10:35 Hgb 12.70 g/dL (11.27-16.99) 03/27/23 10:35 Hct 39.7 % (36-47) 03/27/23 10:35 MCV 96.8 fl (85-98) 03/27/23 10:35 MCH 31.0 pg (27-33) 03/27/23 10:35 MCHC 32.0 g/dL (30-55) 03/27/23 10:35 RDW 12.9 % (12.1-15.1) 03/27/23 10:35 Plt Count 246 10^3/cmm (157-399) 03/27/23 10:35 MPV 10.8 fL (7.4-10.4) H 03/27/23 10:35 Neut % (Auto) 66.9 % 03/27/23 10:35 Lymph % (Auto) 19.5 % 03/27/23 10:35 Lake % (Auto) 10.1 % 03/27/23 10:35 Eos % (Auto) 2.0 % 03/27/23 10:35 Baso % (Auto) 1.0 % 03/27/23 10:35 Neut # (Auto) 3.99 10^3/uL (1.8-7.7) 03/27/23 10:35 Lymph # (Auto) 1.2 10^3/uL (0.8-4.8) 03/27/23 10:35 Lake # (Auto) 0.6 10^3/uL (0.2-0.9) 03/27/23 10:35 Eos # (Auto) 0.1 10^3/uL (0.0-0.8) 03/27/23 10:35 Baso # (Auto) 0.1 10^3/uL (0.0-0.1) 03/27/23 10:35 Nucleated RBC % (auto) 0 % 03/27/23 10:35 Nucleated RBCs # 0.0 /100WBC 03/27/23 10:35 PT 23.50 SECONDS (12.1-14.9) H 03/27/23 10:35 INR 2.01 (0.8-1.2) H 03/27/23 10:35 All radiology interpretation(s) finalized by discharge Discharge Plan Discharge Patient Disposition: Home Clinical Impression: Concussion without loss of consciousness, H/O mitral valve replacement with mechanical valve, On continuous oral anticoagulation Condition: Stable Prescriptions: No Action hydrocodone-acetaminophen 10-325 mg tablet 1 tab PO DAILY PRN (Reason: pain) cariprazine 4.5 mg capsule 4.5 mg PO DAILY Qty: 30 5RF hydroxyzine HCl 25 mg tablet 25 mg PO TID PRN (Reason: itching, anxiety) Qty: 90 5RF lamotrigine 200 mg tablet 200 mg PO DAILY 30 Days Qty: 30 5RF zolpidem 12.5 mg tablet,ext release multiphase 12.5 mg PO .qhs Qty: 30 5RF (DME) Blood Pressure Cuff Misc See Rx Instructions .Route Qty: 1 0RF Rx Instructions: As directed (DME) CPAP machine portable See Rx Instructions .Route .MEDSUPPLY Qty: 1 0RF Rx Instructions: As directed, HOME medical supply albuterol sulfate 2.5 mg /3 mL (0.083 %) solution for nebulization 2.5 mg inhalation QID PRN (Reason: shortness of breath or wheezing) Qty: 75 0RF (DME) Hinged Knee Brace See Rx Instructions .Route .MEDSUPPLY Qty: 1 0RF Rx Instructions: As directed oxybutynin chloride 15 mg tablet extended release 24hr See Rx Instructions .ROUTE .COMPLEX Qty: 180 3RF Dose Instruction: TAKE ONE TABLET BY MOUTH EVERY DAY Rx Instructions: TAKE ONE TABLET BY MOUTH BID pantoprazole [Protonix] 40 mg tablet,delayed release (DR/EC) 40 mg PO DAILY Qty: 90 3RF tenofovir disoproxil fumarate 300 mg tablet See Rx Instructions .ROUTE .COMPLEX Qty: 90 3RF Dose Instruction: TAKE ONE TABLET BY MOUTH EVERY DAY NEED APPT+++ Rx Instructions: TAKE ONE TABLET BY MOUTH EVERY DAY NEED APPT+++ rosuvastatin 5 mg tablet 5 mg PO BEDTIME Qty: 90 0RF aspirin 81 mg tablet,delayed release (DR/EC) 81 mg PO DAILY Qty: 90 3RF warfarin 3 mg tablet 3 mg PO DAILY Qty: 90 1RF Protocol: Dose Management Condition: Sunday Dose/Route: 5 mg Instruction: 2 x 1 mg tablets, 1 x 3 mg tablet Condition: Sunday Dose/Route: 5 mg Instruction: 2 x 1 mg tablets, 1 x 3 mg tablet Condition: Sunday Dose/Route: 5 mg Instruction: 2 x 1 mg tablets, 1 x 3 mg tablet Condition: Sunday Dose/Route: 5 mg Instruction: 2 x 1 mg tablets, 1 x 3 mg tablet Condition: Dose/Route: 5 mg Instruction: 2 x 1 mg tablets, 1 x 3 mg tablet Condition: Sunday Dose/Route: 5 mg Instruction: 2 x 1 mg tablets, 1 x 3 mg tablet Condition: Sunday Dose/Route: 5 mg Instruction: 2 x 1 mg tablets, 1 x 3 mg tablet Protocol Text: Adjustment Start Date: Sunday03/23/23 INR Value: 30.4 Seconds INR Date: 03/22/23 Recheck Date: 03/30/23 warfarin 1 mg tablet 1 mg PO DAILY Qty: 90 0RF Protocol: Dose Management Condition: Sunday Dose/Route: 5 mg Instruction: 2 x 1 mg tablets, 1 x 3 mg tablet Condition: Sunday Dose/Route: 5 mg Instruction: 2 x 1 mg tablets, 1 x 3 mg tablet Condition: Sunday Dose/Route: 5 mg Instruction: 2 x 1 mg tablets, 1 x 3 mg tablet Condition: Sunday Dose/Route: 5 mg Instruction: 2 x 1 mg tablets, 1 x 3 mg tablet Condition: Dose/Route: 5 mg Instruction: 2 x 1 mg tablets, 1 x 3 mg tablet Condition: Sunday Dose/Route: 5 mg Instruction: 2 x 1 mg tablets, 1 x 3 mg tablet Condition: Sunday Dose/Route: 5 mg Instruction: 2 x 1 mg tablets, 1 x 3 mg tablet Protocol Text: Adjustment Start Date: Sunday03/23/23 INR Value: 30.4 Seconds INR Date: 03/22/23 Recheck Date: 03/30/23 gabapentin 300 mg capsule 300 mg PO BID Qty: 60 3RF levothyroxine 112 mcg tablet See Rx Instructions .ROUTE .COMPLEX Qty: 90 3RF Dose Instruction: TAKE 1 TABLET BY MOUTH EVERY DAY Rx Instructions: TAKE 1 TABLET BY MOUTH EVERY DAY Anoro Ellipta 62.5-25 mcg/actuation blister with device See Rx Instructions .ROUTE .COMPLEX Qty: 90 3RF Dose Instruction: USE ONE INHALATION BY MOUTH EVERY DAY Rx Instructions: USE ONE INHALATION BY MOUTH EVERY DAY cetirizine 10 mg tablet See Rx Instructions .ROUTE .COMPLEX Qty: 90 3RF Dose Instruction: TAKE 1 TABLET BY MOUTH EVERY DAY Rx Instructions: TAKE 1 TABLET BY MOUTH EVERY DAY verapamil 240 mg tablet extended release See Rx Instructions .ROUTE .COMPLEX Qty: 45 1RF Dose Instruction: TAKE ONE-HALF tablet BY MOUTH EVERY DAY Rx Instructions: TAKE ONE-HALF tablet BY MOUTH EVERY DAY famotidine 20 mg tablet See Rx Instructions .ROUTE .COMPLEX Qty: 180 3RF Dose Instruction: TAKE ONE TABLET BY MOUTH TWICE DAILY FOR 30 DAYS Rx Instructions: TAKE ONE TABLET BY MOUTH TWICE DAILY FOR 30 DAYS duloxetine 60 mg capsule,delayed release(DR/EC) See Rx Instructions .ROUTE .COMPLEX Qty: 60 11RF Dose Instruction: TAKE ONE CAPSULE BY MOUTH EVERY MORNING AND EVERY EVENING Rx Instructions: TAKE ONE CAPSULE BY MOUTH EVERY MORNING AND EVERY EVENING ferrous sulfate [FeroSul] 325 mg (65 mg iron) tablet See Rx Instructions .ROUTE .COMPLEX Qty: 180 11RF Dose Instruction: TAKE 1 TABLET BY MOUTH EVERY MORNING AND EVERY EVENING Rx Instructions: TAKE 1 TABLET BY MOUTH EVERY MORNING AND EVERY EVENING Combivent Respimat 20-100 mcg/actuation mist See Rx Instructions .ROUTE .COMPLEX Qty: 4 11RF Dose Instruction: USE 1 INHALATION BY MOUTH EVERY 6 HOURS FOR 90 DAYS Rx Instructions: USE 1 INHALATION BY MOUTH EVERY 6 HOURS FOR 90 DAYS warfarin 6 mg tablet 6 mg PO DIRECTED Qty: 90 0RF Protocol: Dose Management Condition: Sunday Dose/Route: 5 mg Instruction: 2 x 1 mg tablets, 1 x 3 mg tablet Condition: Sunday Dose/Route: 5 mg Instruction: 2 x 1 mg tablets, 1 x 3 mg tablet Condition: Sunday Dose/Route: 5 mg Instruction: 2 x 1 mg tablets, 1 x 3 mg tablet Condition: Sunday Dose/Route: 5 mg Instruction: 2 x 1 mg tablets, 1 x 3 mg tablet Condition: Dose/Route: 5 mg Instruction: 2 x 1 mg tablets, 1 x 3 mg tablet Condition: Sunday Dose/Route: 5 mg Instruction: 2 x 1 mg tablets, 1 x 3 mg tablet Condition: Sunday Dose/Route: 5 mg Instruction: 2 x 1 mg tablets, 1 x 3 mg tablet Protocol Text: Adjustment Start Date: Sunday03/23/23 INR Value: 30.4 Seconds INR Date: 03/22/23 Recheck Date: 03/30/23 ergocalciferol (vitamin D2) 1,250 mcg (50,000 unit) Capsule 1,250 mcg PO Q7D Rx Instructions: ON MONDAYS acyclovir 400 mg Tablet 400 mg PO DAILY folic acid 1 mg tablet 1 mg PO DAILY diclofenac sodium [Voltaren Arthritis Pain] 1 % gel 2 g topical QID PRN (Reason: Pain) Rx Instructions: apply to affected foot. Discharge Orders: Discharge ED (Routine); Ordered 03/27/23 Ordered By: Jerardo Pavon Referrals: SAULO Jo, [employer] [Primary Care Provider] - Patient Instructions: Opioid Safety, Pain Management Activity Restrictions/Additional Instructions: Thank you for choosing [facility] for your healthcare needs today. Please realize this is an emergency room and that we are providing you with a medical screening exam and this may not be complete and all inclusive of all the testing and or work up that you may need to determine your ailment or severity o f your illness. It is very important that you follow up as instructed or that you return to the Emergency Department should you have concerns or if your condition changes or worsens in any way. You were seen this morning for complaints of a headache after a fall. Your INR is slightly below therapeutic level. You are given a shot of Lovenox. Recommend for the next 3 days you take 8 mg of Coumadin daily. Then resume your usual dose in 1 week you should have an INR rechecked. Follow-up with your director of district office next week. 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
[2023-03-27] MEDS: enoxaparin 100 mg/mL Syringe 90 MG SUBCUT (13:25)
== END 2023-03-27 14:08 | disposition home or self-care (01) ==
PROVIDERS: Emergency Provider Family Medicine; PCP Nurse Practitioner Family
DX: S06.0X0A Concussion without loss of consciousness, initial encounter (principal); Z95.4 Presence of other heart-valve replacement; D68.318 Other hemorrhagic disorder due to intrinsic circulating anticoagulants, antibodies, or inhibitors; Z79.82 Long term (current) use of aspirin; Z79.01 Long term (current) use of anticoagulants; J44.9 Chronic obstructive pulmonary disease, unspecified; E78.5 Hyperlipidemia, unspecified; Z86.19 Personal history of other infectious and parasitic diseases; W18.39XA Other fall on same level, initial encounter
CPT/HCPCS: 36415; 70450; 85025; 85610; 93005; 93010; 96372; 96374; 96375; 99285; J1650; J2270; J2405

== ENCOUNTER → 2023-04-05 10:08 | Outpatient (BNVA) | payer MEDICAID, SELFPAY | PROVIDERS: PCP Nurse Practitioner Family; Visit Provider Nurse Practitioner Family | DX: Z79.01 Long term (current) use of anticoagulants (principal) | CPT/HCPCS: 85610 ==

== ENCOUNTER → 2023-04-09 16:57 | Outpatient (BNVA) | payer MEDICAID, SELFPAY | PROVIDERS: PCP Nurse Practitioner Family; Visit Provider Nurse Practitioner Family | DX: S93.602A Unspecified sprain of left foot, initial encounter (principal); X58.XXXA Exposure to other specified factors, initial encounter | CPT/HCPCS: 73630 ==

== ENCOUNTER 2023-04-11 14:40 | Outpatient (CLI) | payer MEDICAID, SELFPAY ==
--- NOTE | 2023-04-11 14:41 | MM_ITS ---
WS: [id number] Bilateral screening 3D tomosynthesis digital mammogram, 04/11/2023 Clinical Data: SCREENING Comparison: 10/06/2015, 09/04/2013, 08/21/2012, 04/03/2011, 04/01/2010, 09/30/2009, 09/08/2009, 09/10/2008, 09/10. Findings: The breast parenchymal pattern shows fat replacement fibroglandular tissue. No spiculated masses or c lustered calcifications are seen. There are no secondary signs of carcinoma. There are lymph nodes in both axilla. Impression: 1. Negative bilateral mammogram unchanged. 2. Recommend annual screening mammograms. MM/[id number] BIRADS: 1-Negative FOLLOW UP: 1 Year Follow-up The CAD checker loader was used.
== END 2023-04-11 14:41 | disposition home or self-care (01) ==
LOC: MOBLMAM 14:49
PROVIDERS: PCP Nurse Practitioner Family; Visit Provider Nurse Practitioner Family
DX: Z12.31 Encounter for screening mammogram for malignant neoplasm of breast (principal)
CPT/HCPCS: 77063; 77067; 85610

== ENCOUNTER → 2023-04-18 11:17 | Outpatient (BNVA) | payer MEDICAID, SELFPAY | PROVIDERS: PCP Nurse Practitioner Family; Visit Provider Internal Medicine | DX: Z79.01 Long term (current) use of anticoagulants (principal) | CPT/HCPCS: 85610 ==

== ENCOUNTER → 2023-05-15 11:13 | Outpatient (BNVA) | payer SELFPAY ==
[2023-05-02 10:19] VITALS: BP 130/80; BMI 37.2
== END ==
PROVIDERS: PCP Nurse Practitioner Family; Visit Provider Internal Medicine
DX: Z79.01 Long term (current) use of anticoagulants (principal)
CPT/HCPCS: 85610

== ENCOUNTER → 2023-05-22 16:05 | Outpatient (BNVA) | payer MEDICAID, SELFPAY ==
[2023-05-02 10:19] VITALS: BP 130/80; BMI 37.2
== END ==
PROVIDERS: PCP Nurse Practitioner Family; Visit Provider Internal Medicine
DX: Z79.01 Long term (current) use of anticoagulants (principal)
CPT/HCPCS: 85610

== ENCOUNTER → 2023-06-06 11:48 | Outpatient (BNVA) | payer MEDICAID, SELFPAY ==
[2023-05-02 10:19] VITALS: BP 130/80; BMI 37.2
== END ==
PROVIDERS: PCP Nurse Practitioner Family; Visit Provider Internal Medicine
DX: Z79.01 Long term (current) use of anticoagulants (principal)
CPT/HCPCS: 85610

== ENCOUNTER → 2023-06-14 10:25 | Outpatient (BNVA) | payer MEDICAID, SELFPAY ==
[2023-05-02 10:19] VITALS: BP 130/80; BMI 37.2
== END ==
PROVIDERS: PCP Nurse Practitioner Family; Visit Provider Internal Medicine
DX: Z79.01 Long term (current) use of anticoagulants (principal)
CPT/HCPCS: 85610

== ENCOUNTER → 2023-06-20 09:43 | Outpatient (BNVA) | payer MEDICAID, SELFPAY ==
[2023-05-02 10:19] VITALS: BP 130/80; BMI 37.2
== END ==
PROVIDERS: PCP Nurse Practitioner Family; Visit Provider Internal Medicine
DX: Z79.01 Long term (current) use of anticoagulants (principal)
CPT/HCPCS: 85610

== ENCOUNTER → 2023-06-27 10:35 | Outpatient (BNVA) | payer MEDICAID, SELFPAY ==
[2023-05-02 10:19] VITALS: BP 130/80; BMI 37.2
== END ==
PROVIDERS: PCP Nurse Practitioner Family; Visit Provider Internal Medicine
DX: Z79.01 Long term (current) use of anticoagulants (principal)
CPT/HCPCS: 85610

== ENCOUNTER → 2023-07-06 11:30 | Outpatient (BNVA) | payer MEDICAID, SELFPAY ==
[2023-05-02 10:19] VITALS: BP 130/80; BMI 37.2
== END ==
PROVIDERS: PCP Nurse Practitioner Family; Visit Provider Internal Medicine
DX: Z79.01 Long term (current) use of anticoagulants (principal)
CPT/HCPCS: 85610

== ENCOUNTER → 2023-07-11 16:04 | Outpatient (BNVA) | payer MEDICAID, SELFPAY ==
[2023-05-02 10:19] VITALS: BP 130/80; BMI 37.2
== END ==
PROVIDERS: PCP Nurse Practitioner Family; Visit Provider Nurse Practitioner Family
DX: Z79.01 Long term (current) use of anticoagulants (principal)
CPT/HCPCS: 85610

== ENCOUNTER → 2023-07-18 09:46 | Outpatient (BNVA) | payer MEDICAID, SELFPAY ==
[2023-05-02 10:19] VITALS: BP 130/80; BMI 37.2
== END ==
PROVIDERS: PCP Nurse Practitioner Family; Visit Provider Internal Medicine
DX: Z79.01 Long term (current) use of anticoagulants (principal)
CPT/HCPCS: 85610

== ENCOUNTER → 2023-07-24 14:54 | Outpatient (BNVA) | payer MEDICAID, SELFPAY ==
[2023-05-02 10:19] VITALS: BP 130/80; BMI 37.2
== END ==
PROVIDERS: PCP Nurse Practitioner Family; Visit Provider Physician Assistant
DX: G56.01 Carpal tunnel syndrome, right upper limb (principal)
CPT/HCPCS: 99214

== ENCOUNTER → 2023-07-25 10:17 | Outpatient (BNVA) | payer MEDICAID, SELFPAY ==
[2023-05-02 10:19] VITALS: BP 130/80; BMI 37.2
== END ==
PROVIDERS: PCP Nurse Practitioner Family; Visit Provider Internal Medicine
DX: Z79.01 Long term (current) use of anticoagulants (principal)
CPT/HCPCS: 85610

== ENCOUNTER → 2023-08-15 09:25 | Outpatient (BNVA) | payer MEDICAID, SELFPAY ==
[2023-05-02 10:19] VITALS: BP 130/80; BMI 37.2
== END ==
PROVIDERS: PCP Nurse Practitioner Family; Visit Provider Nurse Practitioner Family
DX: Z79.01 Long term (current) use of anticoagulants (principal)
CPT/HCPCS: 85610

== ENCOUNTER → 2023-08-22 09:19 | Outpatient (BNVA) | payer MEDICAID, SELFPAY ==
[2023-05-02 10:19] VITALS: BP 130/80; BMI 37.2
== END ==
PROVIDERS: PCP Nurse Practitioner Family; Visit Provider Internal Medicine
DX: Z79.01 Long term (current) use of anticoagulants (principal)
CPT/HCPCS: 85610

== ENCOUNTER → 2023-08-29 08:37 | Outpatient (BNVA) | payer MEDICAID, SELFPAY ==
[2023-05-02 10:19] VITALS: BP 130/80; BMI 37.2
== END ==
PROVIDERS: PCP Nurse Practitioner Family; Visit Provider Nurse Practitioner Family
DX: Z79.01 Long term (current) use of anticoagulants (principal); G47.30 Sleep apnea, unspecified; M22.42 Chondromalacia patellae, left knee; N18.9 Chronic kidney disease, unspecified
CPT/HCPCS: 80069; 82310; 83970; 85025; 85610

== ENCOUNTER → 2023-09-19 10:27 | Outpatient (BNVA) | payer MEDICAID, SELFPAY ==
[2023-05-02 10:19] VITALS: BP 130/80; BMI 37.2
== END ==
PROVIDERS: PCP Nurse Practitioner Family; Visit Provider Internal Medicine
DX: Z79.01 Long term (current) use of anticoagulants (principal)
CPT/HCPCS: 85610

== ENCOUNTER → 2023-09-28 16:44 | Outpatient (BNVA) | payer MEDICAID, SELFPAY ==
[2023-05-02 10:19] VITALS: BP 130/80; BMI 37.2
== END ==
PROVIDERS: PCP Nurse Practitioner Family; Visit Provider Nurse Practitioner Family
DX: Z79.01 Long term (current) use of anticoagulants (principal)
CPT/HCPCS: 85610

== ENCOUNTER → 2023-10-03 08:51 | Outpatient (BNVA) | payer MEDICAID, SELFPAY ==
[2023-05-02 10:19] VITALS: BP 130/80; BMI 37.2
== END ==
PROVIDERS: PCP Nurse Practitioner Family; Visit Provider Nurse Practitioner Family
DX: Z79.01 Long term (current) use of anticoagulants (principal)
CPT/HCPCS: 85610

== ENCOUNTER → 2023-10-10 14:33 | Outpatient (BNVA) | payer MEDICAID, SELFPAY ==
[2023-05-02 10:19] VITALS: BP 130/80; BMI 37.2
== END ==
PROVIDERS: PCP Nurse Practitioner Family; Visit Provider Nurse Practitioner Family
DX: Z79.01 Long term (current) use of anticoagulants
CPT/HCPCS: 85610

== ENCOUNTER → 2023-10-17 10:29 | Outpatient (BNVA) | payer MEDICAID, SELFPAY ==
[2023-05-02 10:19] VITALS: BP 130/80; BMI 37.2
== END ==
PROVIDERS: PCP Nurse Practitioner Family; Visit Provider Nurse Practitioner Family
DX: Z79.01 Long term (current) use of anticoagulants (principal)
CPT/HCPCS: 85610

== ENCOUNTER → 2023-10-24 11:08 | Outpatient (BNVA) | payer MEDICAID, SELFPAY ==
[2023-05-02 10:19] VITALS: BP 130/80; BMI 37.2
== END ==
PROVIDERS: PCP Nurse Practitioner Family; Visit Provider Internal Medicine
DX: Z79.01 Long term (current) use of anticoagulants (principal)
CPT/HCPCS: 85610

== ENCOUNTER → 2023-11-01 09:23 | Outpatient (BNVA) | payer MEDICAID, SELFPAY ==
[2023-05-02 10:19] VITALS: BP 130/80; BMI 37.2
== END ==
PROVIDERS: PCP Nurse Practitioner Family; Visit Provider Nurse Practitioner Family
DX: Z79.01 Long term (current) use of anticoagulants (principal)
CPT/HCPCS: 85610

== ENCOUNTER → 2023-11-07 09:11 | Outpatient (BNVA) | payer MEDICAID, SELFPAY ==
[2023-05-02 10:19] VITALS: BP 130/80; BMI 37.2
== END ==
PROVIDERS: PCP Nurse Practitioner Family; Visit Provider Nurse Practitioner Family
DX: Z79.01 Long term (current) use of anticoagulants (principal)
CPT/HCPCS: 85610

== ENCOUNTER → 2023-11-14 15:16 | Outpatient (BNVA) | payer MEDICAID, SELFPAY ==
[2023-05-02 10:19] VITALS: BP 130/80; BMI 37.2
== END ==
PROVIDERS: PCP Nurse Practitioner Family; Visit Provider Nurse Practitioner Family
DX: Z79.01 Long term (current) use of anticoagulants (principal)
CPT/HCPCS: 85610

== ENCOUNTER → 2023-11-28 11:20 | Outpatient (BNVA) | payer MEDICAID, SELFPAY ==
[2023-11-28 10:23] VITALS: BP 130/80; BMI 37.2
== END ==
PROVIDERS: PCP Nurse Practitioner Family; Visit Provider Internal Medicine
DX: Z79.01 Long term (current) use of anticoagulants (principal)
CPT/HCPCS: 85610

== ENCOUNTER → 2023-12-06 10:22 | Outpatient (BNVA) | payer MEDICAID, SELFPAY ==
[2023-11-28 10:23] VITALS: BP 130/80; BMI 37.2
== END ==
PROVIDERS: PCP Nurse Practitioner Family; Visit Provider Internal Medicine
DX: Z79.01 Long term (current) use of anticoagulants (principal)
CPT/HCPCS: 85610

== ENCOUNTER → 2023-12-12 10:57 | Outpatient (BNVA) | payer MEDICAID, SELFPAY ==
[2023-11-28 10:23] VITALS: BP 130/80; BMI 37.2
== END ==
PROVIDERS: PCP Nurse Practitioner Family; Visit Provider Internal Medicine
DX: Z79.01 Long term (current) use of anticoagulants (principal)
CPT/HCPCS: 85610

== ENCOUNTER → 2023-12-19 10:32 | Outpatient (BNVA) | payer MEDICAID, SELFPAY ==
[2023-11-28 10:23] VITALS: BP 130/80; BMI 37.2
== END ==
PROVIDERS: PCP Nurse Practitioner Family; Visit Provider Internal Medicine
DX: Z79.01 Long term (current) use of anticoagulants (principal)
CPT/HCPCS: 85610

== ENCOUNTER → 2023-12-24 14:04 | Outpatient (BNVA) | payer MEDICAID, SELFPAY ==
[2023-11-28 10:23] VITALS: BP 130/80; BMI 37.2
== END ==
PROVIDERS: PCP Nurse Practitioner Family; Visit Provider Nurse Practitioner Family
DX: Z79.899 Other long term (current) drug therapy (principal); E03.9 Hypothyroidism, unspecified; E55.9 Vitamin D deficiency, unspecified; D51.8 Other vitamin B12 deficiency anemias; B19.10 Unspecified viral hepatitis B without hepatic coma
CPT/HCPCS: 80053; 80061; 81003; 82306; 82607; 83036; 84443; 85025

== ENCOUNTER → 2023-12-27 15:00 | Outpatient (BNVA) | payer MEDICAID, SELFPAY ==
[2023-11-28 10:23] VITALS: BP 130/80; BMI 37.2
== END ==
PROVIDERS: PCP Nurse Practitioner Family; Visit Provider Nurse Practitioner Family
DX: Z79.01 Long term (current) use of anticoagulants (principal); Z79.899 Other long term (current) drug therapy; E03.9 Hypothyroidism, unspecified; E55.9 Vitamin D deficiency, unspecified; D51.8 Other vitamin B12 deficiency anemias; B19.10 Unspecified viral hepatitis B without hepatic coma
CPT/HCPCS: 80053; 80061; 81003; 82306; 82607; 83036; 84443; 85025; 85610; 87517

== ENCOUNTER → 2024-01-02 10:35 | Outpatient (BNVA) | payer MEDICAID, SELFPAY ==
[2023-11-28 10:23] VITALS: BP 130/80; BMI 37.2
== END ==
PROVIDERS: PCP Nurse Practitioner Family; Visit Provider Nurse Practitioner Family
DX: Z79.01 Long term (current) use of anticoagulants (principal)
CPT/HCPCS: 85610

== ENCOUNTER → 2024-01-09 09:51 | Outpatient (BNVA) | payer MEDICAID, SELFPAY ==
[2023-11-28 10:23] VITALS: BP 130/80; BMI 37.2
== END ==
PROVIDERS: PCP Nurse Practitioner Family; Visit Provider Nurse Practitioner Family
DX: Z79.01 Long term (current) use of anticoagulants (principal)
CPT/HCPCS: 85610

== ENCOUNTER → 2024-01-16 10:40 | Outpatient (BNVA) | payer MEDICAID, SELFPAY ==
[2023-11-28 10:23] VITALS: BP 130/80; BMI 37.2
== END ==
PROVIDERS: PCP Nurse Practitioner Family; Visit Provider Nurse Practitioner Family
DX: Z79.01 Long term (current) use of anticoagulants (principal)
CPT/HCPCS: 85610

== ENCOUNTER → 2024-01-23 10:43 | Outpatient (BNVA) | payer MEDICAID, SELFPAY ==
[2023-11-28 10:23] VITALS: BP 130/80; BMI 37.2
== END ==
PROVIDERS: PCP Nurse Practitioner Family; Visit Provider Nurse Practitioner Family
DX: Z79.01 Long term (current) use of anticoagulants (principal)
CPT/HCPCS: 85610

== ENCOUNTER → 2024-01-30 10:54 | Outpatient (BNVA) | payer MEDICAID, SELFPAY ==
[2024-01-30 10:38] VITALS: BP 130/80; BMI 37.2
== END ==
PROVIDERS: PCP Nurse Practitioner Family; Visit Provider Nurse Practitioner Family
DX: Z79.01 Long term (current) use of anticoagulants (principal)
CPT/HCPCS: 85610

== ENCOUNTER → 2024-02-06 10:31 | Outpatient (BNVA) | payer MEDICAID, SELFPAY ==
[2024-02-06 10:16] VITALS: BP 120/60; BMI 36.6
== END ==
PROVIDERS: PCP Nurse Practitioner Family; Visit Provider Nurse Practitioner Family
DX: Z79.01 Long term (current) use of anticoagulants (principal)
CPT/HCPCS: 85610

== ENCOUNTER → 2024-02-13 10:35 | Outpatient (BNVA) | payer SELFPAY ==
[2024-02-13 10:18] VITALS: BP 120/60; BMI 36.6
== END ==
PROVIDERS: PCP Nurse Practitioner Family; Visit Provider Nurse Practitioner Family
DX: Z79.01 Long term (current) use of anticoagulants (principal)
CPT/HCPCS: 85610

== ENCOUNTER → 2024-02-15 09:42 | Outpatient (BNVA) | payer MEDICAID, SELFPAY ==
[2024-02-13 10:18] VITALS: BP 120/60; BMI 36.6
== END ==
PROVIDERS: PCP Nurse Practitioner Family; Visit Provider Internal Medicine
DX: I10 Essential (primary) hypertension (principal); Z79.01 Long term (current) use of anticoagulants; Z95.2 Presence of prosthetic heart valve; E78.5 Hyperlipidemia, unspecified
CPT/HCPCS: 99214

== ENCOUNTER → 2024-02-20 10:31 | Outpatient (BNVA) | payer MEDICAID, SELFPAY ==
[2024-02-18 10:44] VITALS: BP 120/60; BMI 36.6
== END ==
PROVIDERS: PCP Nurse Practitioner Family; Visit Provider Nurse Practitioner Family
DX: Z79.01 Long term (current) use of anticoagulants (principal)
CPT/HCPCS: 85610

== ENCOUNTER → 2024-02-27 10:44 | Outpatient (BNVA) | payer MEDICAID, SELFPAY ==
[2024-02-18 10:44] VITALS: BP 120/60; BMI 36.6
== END ==
PROVIDERS: PCP Nurse Practitioner Family; Visit Provider Nurse Practitioner Family
DX: Z79.01 Long term (current) use of anticoagulants (principal)
CPT/HCPCS: 85610

== ENCOUNTER → 2024-03-05 12:15 | Outpatient (BNVA) | payer MEDICAID, SELFPAY ==
[2024-02-18 10:44] VITALS: BP 120/60; BMI 36.6
== END ==
PROVIDERS: PCP Nurse Practitioner Family; Visit Provider Internal Medicine
DX: Z79.01 Long term (current) use of anticoagulants (principal)
CPT/HCPCS: 85610

== ENCOUNTER → 2024-03-12 11:17 | Outpatient (BNVA) | payer MEDICAID, SELFPAY ==
[2024-02-18 10:44] VITALS: BP 120/60; BMI 36.6
== END ==
PROVIDERS: PCP Nurse Practitioner Family; Visit Provider Nurse Practitioner Family
DX: Z79.01 Long term (current) use of anticoagulants (principal)
CPT/HCPCS: 85610

== ENCOUNTER → 2024-03-19 12:02 | Outpatient (BNVA) | payer MEDICAID, SELFPAY ==
[2024-02-18 10:44] VITALS: BP 120/60; BMI 36.6
== END ==
PROVIDERS: PCP Nurse Practitioner Family; Visit Provider Nurse Practitioner Family
DX: Z79.01 Long term (current) use of anticoagulants (principal)
CPT/HCPCS: 85610

== ENCOUNTER → 2024-04-02 10:51 | Outpatient (BNVA) | payer MEDICAID, SELFPAY ==
[2024-02-18 10:44] VITALS: BP 120/60; BMI 36.6
== END ==
PROVIDERS: PCP Nurse Practitioner Family; Visit Provider Internal Medicine
DX: Z79.01 Long term (current) use of anticoagulants (principal)
CPT/HCPCS: 85610

== ENCOUNTER → 2024-04-09 14:51 | Outpatient (BNVA) | payer MEDICAID, SELFPAY ==
[2024-02-18 10:44] VITALS: BP 120/60; BMI 36.6
== END ==
PROVIDERS: PCP Nurse Practitioner Family; Visit Provider Internal Medicine
DX: Z79.01 Long term (current) use of anticoagulants (principal)
CPT/HCPCS: 85610

== ENCOUNTER → 2024-04-23 09:54 | Outpatient (BNVA) | payer MEDICAID, SELFPAY ==
[2024-02-18 10:44] VITALS: BP 120/60; BMI 36.6
== END ==
PROVIDERS: PCP Nurse Practitioner Family; Visit Provider Nurse Practitioner Family
DX: Z79.01 Long term (current) use of anticoagulants (principal)
CPT/HCPCS: 85610

== ENCOUNTER 2024-05-05 17:37 | Emergency (ER) | payer MEDICAID, SELFPAY ==
[2024-02-18 10:44] VITALS: BP 120/60; BMI 36.6
[2024-05-05 17:42] VITALS: BP 158/84; PULSE 66; RESP 18; TEMP 36.4; O2SAT 98; BMI 36.3
--- NOTE | 2024-05-05 18:31 | USR_ITS ---
PROCEDURE INFORMATION: Exam: US Duplex Left Lower Extremity Veins, Limited Exam date and time: 05/05/2024 6:40 PM Age: 63 years old Clinical indication: Pain; Leg, lower; Left; Additional info: Atraumtic left leg pain TECHNIQUE: Imaging protocol: Real-time duplex ultrasound of the left extremity with 2-D jett scale, color Doppler flow and spectral waveform analysis including responses to compression and other maneuvers (when performed) with image documentation. Limited exam focused on the left lower extremity veins. COMPARISON: US soft tissue/extremity [id number] 11/30/2021 10:45 AM FINDINGS: Left deep veins: Unremarkable. The common femoral, femoral, proximal profunda femoral and popliteal veins are patent without thrombus. Normal Doppler waveforms. Normal compressibility and/or augmentation response. Superficial veins: Greater saphenous vein at the saphenofemoral junction is patent without thrombus. Soft tissues: Unremarkable. US/[id number] IMPRESSION: No evidence of deep vein thrombosis.
--- NOTE | 2024-05-05 20:36 | W.ED.EXTPRO ---
HPI - Extremity Problem General: Chief complaint: Extremity Injury, Lower Stated complaint: L. leg pain Time Seen by Provider: 05/05/24 18:42 History of Present Illness: Patient presents to the ER with complaint of left lower lateral calf pain. She says she her stairs and hit it on a flowerpot. She is worried about a blood clot. Patient does take warfarin. She has no other complaints at this time. No syncope loss of consciousness. Related Data Home Medications Medication Instructions Recorded Confirmed hydrocodone 10 mg-acetaminophen 1 tab PO DAILY PRN pain 07/13/21 04/10/24 325 mg tablet diclofenac sodium 1 % topical gel 2 g topical QID PRN Pain 11/30/21 04/10/24 (Voltaren Arthritis Pain) ergocalciferol (vitamin D2) 1,250 1,250 mcg PO Q7D 11/30/21 04/10/24 mcg (50,000 unit) capsule Previous Rx's Medication Instructions Recorded tenofovir disoproxil fumarate 300 See Rx Instructions .Route 01/10/22 mg tablet .COMPLEX #90 tabs CPAP machine portable #1 ea 01/20/22 Hinged Knee Brace #1 ea 09/27/22 gabapentin 300 mg capsule 300 mg PO BID #60 caps 10/06/22 miscellaneous medical supply #1 ea 10/20/22 (Blood Pressure Cuff) aspirin 81 mg tablet,delayed 81 mg PO DAILY #90 tabs 06/25/23 release umeclidinium 62.5 mcg-vilanterol See Rx Instructions .Route 09/05/23 25 mcg/actuation powdr for .COMPLEX #60 ea inhalation (Anoro Ellipta) verapamil 240 mg tablet,extended See Rx Instructions .Route 09/05/23 release .COMPLEX #15 tabs famotidine 20 mg tablet See Rx Instructions .Route 11/02/23 .COMPLEX #180 tabs levothyroxine 112 mcg tablet See Rx Instructions .Route 11/02/23 .COMPLEX #90 tabs oxybutynin chloride 15 mg See Rx Instructions .Route 11/02/23 tablet,extended release 24 hr .COMPLEX #180 tabs warfarin 3 mg tablet 3 mg PO DAILY #90 tabs 12/18/23 warfarin 5 mg tablet See Rx Instructions .Route 12/18/23 .COMPLEX #30 tabs folic acid 1 mg tablet 1 mg PO DAILY 90 days #90 tabs 12/24/23 ipratropium 20 mcg-albuterol 100 See Rx Instructions .Route 01/09/24 mcg/actuation mist for inhalation .COMPLEX #4 grams (Combivent Respimat) rosuvastatin 5 mg tablet 5 mg PO BEDTIME #90 tabs 01/14/24 albuterol sulfate 2.5 mg/3 mL See Rx Instructions .Route 02/01/24 (0.083 %) solution for nebulization .COMPLEX #90 mL cariprazine 6 mg capsule 6 mg PO DAILY 30 days #30 caps 02/07/24 hydroxyzine HCl 25 mg tablet 25 mg PO TID PRN anxiety or sleep 02/07/24 #90 tabs lamotrigine 200 mg tablet 200 mg PO DAILY 30 days #30 tabs 02/07/24 venlafaxine 150 mg 150 mg PO DAILY #30 caps 02/07/24 capsule,extended release 24 hr zolpidem 10 mg tablet 10 mg PO .qhs 30 days #30 tabs 02/07/24 cetirizine 10 mg tablet See Rx Instructions .Route 02/12/24 .COMPLEX #90 tabs ketoconazole 2 % topical cream 1 applic topical BID PRN yeast 02/18/24 rash 30 days #30 grams pantoprazole 40 mg tablet,delayed See Rx Instructions .Route 03/05/24 release .COMPLEX #30 tabs ferrous sulfate 325 mg (65 mg See Rx Instructions .Route 03/10/24 iron) tablet (FeroSul) .COMPLEX #180 tabs warfarin 1 mg tablet See Rx Instructions .Route 03/12/24 .COMPLEX #30 tabs warfarin 2 mg tablet 2 mg PO DAILY #30 tabs 03/12/24 valacyclovir 1 gram tablet See Rx Instructions PO DAILY 30 04/08/24 days #30 tabs Allergies Allergy/AdvReac Type Severity Reaction Status Date / Time Sulfa (Sulfonamide Allergy Intermediate Anger Verified 05/05/24 17:44 Antibiotics) penicillin V Allergy Unknown Verified 05/05/24 17:44 Review of Systems General: Reports: 10 or more systems reviewed and unremarkable except in HPI and below PFSH ED PFSH: Medical History Fever blister Acute bronchitis Yeast dermatitis Vitamin B12 deficiency (dietary) anemia Hepatitis B Finger pain, left Chronic bronchitis Left knee pain COVID-19 Sprain of left foot Encounter for laboratory test Breast cancer screening by mammogram Bilateral carpal tunnel syndrome Chondromalacia of left patellofemoral joint Insomnia Vitamin D deficiency Chronic low back pain Oral herpes simplex infection Flu-like symptoms Chronic bronchitis Sleep apnea COPD exacerbation Psychiatric care Left hip pain COPD (chronic obstructive pulmonary disease) Chest pain GERD (gastroesophageal reflux disease) Laceration of scalp Urinary tract infection Medication management Hypothyroid Vitamin D deficiency Urinary incontinence Hepatitis C Tobacco abuse Dyslipidemia Obesity Warfarin anticoagulation Bipolar disorder, current episode depressed, moderate Generalized anxiety disorder Surgical History History of total vaginal hysterectomy (TVH) Dr. Arnold ALONSO, October 29, 2002 Due to fibroids H/O mitral valve replacement with mechanical valve Family History Father CAD (coronary artery disease) Cancer Brother Hypertension Mother Hypertension Hyperlipidemia Grandfather Diabetes Grandmother Diabetes Social History Smoking and tobacco/nicotine status: never used tobacco/nicotine Alcohol intake: never Substance/Drug Use: never Lives independently: Yes Household members: spouse Marital status: Current occupational status: disabled Do you think of yourself as: Straight/Heterosexual Current gender identity: Female Physical Exam Const: COMMON NORMALS: no acute distress, average body habitus, patient oriented x3, no limitations, healthy appearing, alert and well nourished HENMT: COMMON NORMALS: normocephalic, atraumatic, hearing grossly normal bilaterally, external ears normal, Normal external nose present and moist oral mucous membranes HEAD & SCALP: normocephalic and atraumatic NOSE: Normal external nose present EXTERNAL EAR: Yes external ears normal Neck/C-Spine: COMMON NORMALS: no JVD Chest: COMMONS NORMALS: normal inspection of the chest and normal palpation of entire chest wall Resp: COMMON NORMALS: normal respiratory effort, No retractions, No use of accessory muscles and clear to auscultation bilaterally AUSCULTATION: clear to auscultation bilaterally Cardio: COMMON NORMALS: no JVD, regular rate, regular rhythm, S1 normal heart sound present, S2 normal heart sound present, No gallops present (Cardio), No clicks present (Cardio), No murmurs present (Cardio) and No rub (Cardio) RATE: regular rate RHYTHM: regular rhythm HEART SOUNDS: S1 normal heart sound present and S2 normal heart sound present GI: COMMON NORMALS: Normal to inspection, nondistended, normoactive bowel sounds present, Soft to palpation, non-tender and No hepatosplenomegaly present PALPATION: Yes Soft to palpation and Yes No hepatosplenomegaly present Extremity: NARRATIVE EXTREMITY EXAM: Left lateral calf bruise tenderness to palpation, ultrasound reviewed no DVT. Neuro: COMMON NORMALS: patient oriented x3 SENSORIUM/ORIENTATION: Yes alert Course Vital Signs: Vital signs: Vital Signs Temperature 97.6 F 05/05/24 17:42 Pulse Rate 66 05/05/24 17:42 Respiratory Rate 18 05/05/24 17:42 Blood Pressure 158/84 05/05/24 17:42 Pulse Oximetry 98 05/05/24 17:42 Oxygen Delivery Me thod Room Air 05/05/24 17:42 MDM - Extremity (Nontraumatic) Medical Decision Making Ultrasound the left lower extremity showed no DVT, clinically patient has a hematoma and a bruise and is on warfarin. Patient be discharged use of the [place] she has already at home. Medical Records I reviewed the patient's medical records. Lab Data I reviewed the patient's lab results. Radiology Impressions Venous Duplex 05/05/24 18:31 IMPRESSION: No evidence of deep vein thrombosis. All radiology interpretation(s) finalized by discharge Discharge Plan Discharge Patient Disposition: Home Clinical Impression: Fall, Contusion of left lower leg Condition: Stable Prescriptions: No Action hydrocodone-acetaminophen 10-325 mg tablet 1 tab PO DAILY PRN (Reason: pain) folic acid 1 mg tablet 1 mg PO DAILY 90 Days Qty: 90 1RF (DME) Blood Pressure Cuff Misc See Rx Instructions .Route Qty: 1 0RF Rx Instructions: As directed (DME) CPAP machine portable See Rx Instructions .Route .MEDSUPPLY Qty: 1 0RF Rx Instructions: As directed, HOME medical supply (DME) Hinged Knee Brace See Rx Instructions .Route .MEDSUPPLY Qty: 1 0RF Rx Instructions: As directed cariprazine 6 mg capsule 6 mg PO DAILY 30 Days Qty: 30 6RF hydroxyzine HCl 25 mg tablet 25 mg PO TID PRN (Reason: anxiety or sleep) Qty: 90 6RF lamotrigine 200 mg tablet 200 mg PO DAILY 30 Days Qty: 30 6RF venlafaxine 150 mg capsule,extended release 24hr 150 mg PO DAILY Qty: 30 6RF zolpidem 10 mg tablet 10 mg PO .qhs 30 Days Qty: 30 5RF rosuvastatin 5 mg tablet 5 mg PO BEDTIME Qty: 90 1RF ketoconazole 2 % cream 1 applic topical BID PRN (Reason: yeast rash) 30 Days Qty: 30 0RF tenofovir disoproxil fumarate 300 mg tablet See Rx Instructions .ROUTE .COMPLEX Qty: 90 3RF Dose Instruction: TAKE ONE TABLET BY MOUTH EVERY DAY NEED APPT+++ Rx Instructions: TAKE ONE TABLET BY MOUTH EVERY DAY NEED APPT+++ gabapentin 300 mg capsule 300 mg PO BID Qty: 60 3RF aspirin 81 mg tablet,delayed release (DR/EC) 81 mg PO DAILY Qty: 90 3RF Anoro Ellipta 62.5-25 mcg/actuation blister with device See Rx Instructions .ROUTE .COMPLEX Qty: 60 11RF Dose Instruction: USE ONE INHALATION BY MOUTH EVERY DAY Rx Instructions: USE ONE INHALATION BY MOUTH EVERY DAY verapamil 240 mg tablet extended release See Rx Instructions .ROUTE .COMPLEX Qty: 15 11RF Dose Instruction: TAKE 1/2 TABLET BY MOUTH EVERY MORNING Rx Instructions: TAKE 1/2 TABLET BY MOUTH EVERY MORNING famotidine 20 mg tablet See Rx Instructions .ROUTE .COMPLEX Qty: 180 3RF Dose Instruction: TAKE ONE TABLET BY MOUTH TWICE DAILY FOR 30 DAYS Rx Instructions: TAKE ONE TABLET BY MOUTH TWICE DAILY FOR 30 DAYS levothyroxine 112 mcg tablet See Rx Instructions .ROUTE .COMPLEX Qty: 90 3RF Dose Instruction: TAKE 1 TABLET BY MOUTH EVERY DAY Rx Instructions: TAKE 1 TABLET BY MOUTH EVERY DAY oxybutynin chloride 15 mg tablet extended release 24hr See Rx Instructions .ROUTE .COMPLEX Qty: 180 3RF Dose Instruction: TAKE ONE TABLET BY MOUTH EVERY DAY Rx Instructions: TAKE ONE TABLET BY MOUTH BID warfarin 5 mg tablet See Rx Instructions .ROUTE .COMPLEX Qty: 30 11RF Protocol: Dose Management Condition: Sunday Dose/Route: 6 mg Instruction: 2 x 3 mg tablets Condition: Sunday Dose/Route: 6 mg Instruction: 2 x 3 mg tablets Condition: Sunday Dose/Route: 6 mg Instruction: 2 x 3 mg tablets Condition: Sunday Dose/Route: 6 mg Instruction: 2 x 3 mg tablets Condition: Dose/Route: 0 mg Instruction: 0 tablets Condition: Sunday Dose/Route: 6 mg Instruction: 2 x 3 mg tablets Condition: Sunday Dose/Route: 6 mg Instruction: 2 x 3 mg tablets Protocol Text: Adjustment Start Date: Sunday04/23/24 INR Value: 49.00 SECONDS INR Date: 04/23/24 Recheck Date: 04/30/24 Dose Instruction: TAKE 1 TABLET BY MOUTH EVERY MORNING Rx Instructions: TAKE 1 TABLET BY MOUTH EVERY MORNING warfarin 3 mg tablet 3 mg PO DAILY Qty: 90 1RF Protocol: Dose Management Condition: Sunday Dose/Route: 6 mg Instruction: 2 x 3 mg tablets Condition: Sunday Dose/Route: 6 mg Instruction: 2 x 3 mg tablets Condition: Sunday Dose/Route: 6 mg Instruction: 2 x 3 mg tablets Condition: Sunday Dose/Route: 6 mg Instruction: 2 x 3 mg tablets Condition: Dose/Route: 0 mg Instruction: 0 tablets Condition: Sunday Dose/Route: 6 mg Instruction: 2 x 3 mg tablets Condition: Sunday Dose/Route: 6 mg Instruction: 2 x 3 mg tablets Protocol Text: Adjustment Start Date: Sunday04/23/24 INR Value: 49.00 SECONDS INR Date: 04/23/24 Recheck Date: 04/30/24 Combivent Respimat 20-100 mcg/actuation mist See Rx Instructions .ROUTE .COMPLEX Qty: 4 11RF Dose Instruction: USE 1 INHALATION BY MOUTH EVERY 6 HOURS FOR 90 DAYS Rx Instructions: USE 1 INHALATION BY MOUTH EVERY 6 HOURS FOR 90 DAYS albuterol sulfate 2.5 mg /3 mL (0.083 %) solution for nebulization See Rx Instructions .ROUTE .COMPLEX Qty: 90 11RF Dose Instruction: NEBULIZE ONE VIAL FOUR TIMES A DAY NEEDED FOR SHORTNESS OF BREATH OR WHEEZING Rx Instructions: NEBULIZE ONE VIAL FOUR TIMES A DAY NEEDED FOR SHORTNESS OF BREATH OR WHEEZING cetirizine 10 mg tablet See Rx Instructions .ROUTE .COMPLEX Qty: 90 11RF Dose Instruction: TAKE 1 TABLET BY MOUTH EVERY DAY Rx Instructions: TAKE 1 TABLET BY MOUTH EVERY DAY pantoprazole 40 mg tablet,delayed release (DR/EC) See Rx Instructions .ROUTE .COMPLEX Qty: 30 3RF Dose Instruction: TAKE 1 TABLET BY MOUTH EVERY MORNING Rx Instructions: TAKE 1 TABLET BY MOUTH EVERY MORNING ferrous sulfate [FeroSul] 325 mg (65 mg iron) tablet See Rx Instructions .ROUTE .COMPLEX Qty: 180 5RF Dose Instruction: TAKE 1 TABLET BY MOUTH EVERY MORNING AND EVERY EVENING Rx Instructions: TAKE 1 TABLET BY MOUTH EVERY MORNING AND EVERY EVENING warfarin 2 mg tablet 2 mg PO DAILY Qty: 30 5RF Protocol: Dose Management Condition: Sunday Dose/Route: 6 mg Instruction: 2 x 3 mg tablets Condition: Sunday Dose/Route: 6 mg Instruction: 2 x 3 mg tablets Condition: Sunday Dose/Route: 6 mg Instruction: 2 x 3 mg tablets Condition: Sunday Dose/Route: 6 mg Instruction: 2 x 3 mg tablets Condition: Dose/Route: 0 mg Instruction: 0 tablets Condition: Sunday Dose/Route: 6 mg Instruction: 2 x 3 mg tablets Condition: Sunday Dose/Route: 6 mg Instruction: 2 x 3 mg tablets Protocol Text: Adjustment Start Date: Sunday04/23/24 INR Value: 49.00 SECONDS INR Date: 04/23/24 Recheck Date: 04/30/24 warfarin 1 mg tablet See Rx Instructions .ROUTE .COMPLEX Qty: 30 5RF Protocol: Dose Management Condition: Sunday Dose/Route: 6 mg Instruction: 2 x 3 mg tablets Condition: Sunday Dose/Route: 6 mg Instruction: 2 x 3 mg tablets Condition: Sunday Dose/Route: 6 mg Instruction: 2 x 3 mg tablets Condition: Sunday Dose/Route: 6 mg Instruction: 2 x 3 mg tablets Condition: Dose/Route: 0 mg Instruction: 0 tablets Condition: Sunday Dose/Route: 6 mg Instruction: 2 x 3 mg tablets Condition: Sunday Dose/Route: 6 mg Instruction: 2 x 3 mg tablets Protocol Text: Adjustment Start Date: Sunday04/23/24 INR Value: 49.00 SECONDS INR Date: 04/23/24 Recheck Date: 04/30/24 Dose Instruction: TAKE 1 TABLET BY MOUTH DAILY Rx Instructions: TAKE 1 TABLET BY MOUTH DAILY valacyclovir 1 gram tablet See Rx Instructions PO DAILY 30 Days Qty: 30 1RF Rx Instructions: 1 tab 10 days, then 1tab for 5 days at onset of fever blister orally daily; ergocalciferol (vitamin D2) 1,250 mcg (50,000 unit) Capsule 1,250 mcg PO Q7D Rx Instructions: ON MONDAYS diclofenac sodium [Voltaren Arthritis Pain] 1 % gel 2 g topical QID PRN (Reason: Pain) Rx Instructions: apply to affected foot. Discharge Orders: Discharge ED (Routine); Ordered 05/05/24 Ordered By: Dinesh Garvin Referrals: SAULO Jo, DAVIS [Primary Care Provider] - 1 week Patient Instructions: Contusion in Adults (ED) Activity Restrictions/Additional Instructions: Thank you for choosing [facility] for your healthcare needs today. Please realize that you were seen in the emergency department and that we are providing you with an emergency medical screening exam and this may not be a complete and all exclusive of all testing and/or medical workup we may need to determine your element or severity of your illness. It is very important that you follow-up as instructed with your primary care provider or specialist for the additional evaluation and to discuss your medical treatment plan. You may return to the emergency department should you have concerns or if your condition changes or worsens in any way. Coding Level of Care Code ED [employer] for [place]
[2024-05-05 20:50] VITALS: BP 158/77; PULSE 59; RESP 16; O2SAT 93
[2024-05-05 21:28] VITALS: BP 158/77; PULSE 59; RESP 18; O2SAT 93
== END 2024-05-05 21:30 | disposition home or self-care (01) ==
PROVIDERS: Emergency Provider Emergency Medicine; PCP Nurse Practitioner Family
DX: S80.12XA Contusion of left lower leg, initial encounter (principal); W19.XXXA Unspecified fall, initial encounter; Z79.82 Long term (current) use of aspirin; Z79.01 Long term (current) use of anticoagulants; J44.9 Chronic obstructive pulmonary disease, unspecified; E78.5 Hyperlipidemia, unspecified
CPT/HCPCS: 93971; 99284

== ENCOUNTER → 2024-05-08 10:25 | Outpatient (BNVA) | payer MEDICAID, SELFPAY ==
[2024-02-18 10:44] VITALS: BP 120/60; BMI 36.6
== END ==
PROVIDERS: PCP Nurse Practitioner Family; Visit Provider Nurse Practitioner Family
DX: Z79.01 Long term (current) use of anticoagulants (principal)
CPT/HCPCS: 85610

== ENCOUNTER → 2024-05-14 10:48 | Outpatient (BNVA) | payer MEDICAID, SELFPAY ==
[2024-02-18 10:44] VITALS: BP 120/60; BMI 36.6
== END ==
PROVIDERS: PCP Nurse Practitioner Family; Visit Provider Nurse Practitioner Family
DX: Z79.01 Long term (current) use of anticoagulants (principal)
CPT/HCPCS: 85610

== ENCOUNTER → 2024-05-21 09:51 | Outpatient (BNVA) | payer MEDICAID, SELFPAY ==
[2024-02-18 10:44] VITALS: BP 120/60; BMI 36.6
== END ==
PROVIDERS: PCP Nurse Practitioner Family; Visit Provider Nurse Practitioner Family
DX: Z79.01 Long term (current) use of anticoagulants (principal)
CPT/HCPCS: 85610

== ENCOUNTER → 2024-05-29 11:14 | Outpatient (BNVA) | payer MEDICAID, SELFPAY ==
[2024-02-18 10:44] VITALS: BP 120/60; BMI 36.6
== END ==
PROVIDERS: PCP Nurse Practitioner Family; Visit Provider Internal Medicine
DX: Z79.01 Long term (current) use of anticoagulants (principal)
CPT/HCPCS: 85610

== ENCOUNTER → 2024-06-04 15:02 | Outpatient (BNVA) | payer MEDICAID, SELFPAY ==
[2024-06-04 10:52] VITALS: BP 120/60; BMI 36.6
== END ==
PROVIDERS: PCP Nurse Practitioner Family; Visit Provider Nurse Practitioner Family
DX: Z79.01 Long term (current) use of anticoagulants (principal)
CPT/HCPCS: 85610

== ENCOUNTER → 2024-06-06 09:43 | Outpatient (BNVA) | payer MEDICAID, SELFPAY ==
[2024-06-04 10:52] VITALS: BP 120/60; BMI 36.6
== END ==
PROVIDERS: PCP Nurse Practitioner Family; Visit Provider Nurse Practitioner Family
DX: S86.912A Strain of unspecified muscle(s) and tendon(s) at lower leg level, left leg, initial encounter (principal); S80.12XA Contusion of left lower leg, initial encounter; X58.XXXA Exposure to other specified factors, initial encounter; I10 Essential (primary) hypertension; E78.5 Hyperlipidemia, unspecified; E03.9 Hypothyroidism, unspecified; E55.9 Vitamin D deficiency, unspecified; B18.1 Chronic viral hepatitis B without delta-agent; D51.8 Other vitamin B12 deficiency anemias; Z79.899 Other long term (current) drug therapy
CPT/HCPCS: 73590; 80053; 80061; 81003; 82105; 83036; 84443; 85025; 86706; 86707; 87340; 87517; 87522

== ENCOUNTER → 2024-06-11 10:40 | Outpatient (BNVA) | payer MEDICAID, SELFPAY ==
[2024-06-10 13:20] VITALS: BP 110/64; BMI 35.6
== END ==
PROVIDERS: PCP Nurse Practitioner Family; Visit Provider Nurse Practitioner Family
DX: Z79.01 Long term (current) use of anticoagulants (principal)
CPT/HCPCS: 85610

== ENCOUNTER → 2024-06-16 11:16 | Outpatient (BNVA) | payer MEDICAID, SELFPAY ==
[2024-06-10 13:20] VITALS: BP 110/64; BMI 35.6
== END ==
PROVIDERS: PCP Nurse Practitioner Family; Visit Provider Podiatrist Foot & Ankle Surgery
DX: S82.865A Nondisplaced Maisonneuve's fracture of left leg, initial encounter for closed fracture (principal); W19.XXXA Unspecified fall, initial encounter
CPT/HCPCS: 73590; 99204

== ENCOUNTER → 2024-06-18 10:21 | Outpatient (BNVA) | payer MEDICAID, SELFPAY ==
[2024-06-10 13:20] VITALS: BP 110/64; BMI 35.6
== END ==
PROVIDERS: PCP Nurse Practitioner Family; Visit Provider Nurse Practitioner Family
DX: Z79.01 Long term (current) use of anticoagulants (principal)
CPT/HCPCS: 85610

== ENCOUNTER → 2024-07-09 13:44 | Outpatient (BNVA) | payer MEDICAID, SELFPAY ==
[2024-06-10 13:20] VITALS: BP 110/64; BMI 35.6
== END ==
PROVIDERS: PCP Nurse Practitioner Family; Visit Provider Internal Medicine
DX: Z79.01 Long term (current) use of anticoagulants (principal)
CPT/HCPCS: 85610

== ENCOUNTER 2024-07-14 07:49 | Outpatient (CLI) | payer MEDICAID, SELFPAY ==
[2024-06-04 10:52] VITALS: BP 120/60; BMI 36.6
[2024-06-10 13:20] VITALS: BP 110/64; BMI 35.6
--- NOTE | 2024-07-14 07:55 | US_ITS ---
WS: [id number] RIGHT UPPER QUADRANT ULTRASOUND HISTORY: B18.1 - Chronic viral hepatitis B without delta-agent COMPARISON: None available. Liver: 14.6 cm in length. Normal size liver and echogenicity. No bile duct dilatation or mass. Portal Vein: Normal hepatopetal flow with monophasic waveform. Gallbladder: Prior cholecystectomy. CBD: 0.4 cm Pancreas: Normal size and echogenicity. Right kidney: 10.2 cm in length. Normal size and echogenicity. No hydronephrosis or mass. Aorta and IVC: Unremarkable abdominal aorta and IVC. No ascites. US/US liver [id number] IMPRESSION: 1. Prior cholecystectomy. 2. Otherwise unremarkable RIGHT upper quadrant ultrasound.
== END 2024-07-14 07:50 | disposition home or self-care (01) ==
LOC: RAD 07:50
PROVIDERS: PCP Nurse Practitioner Family; Visit Provider Nurse Practitioner Family
DX: B18.1 Chronic viral hepatitis B without delta-agent (principal); Z90.49 Acquired absence of other specified parts of digestive tract
CPT/HCPCS: 76705; 85610

== ENCOUNTER → 2024-07-16 08:11 | Outpatient (BNVA) | payer MEDICAID, SELFPAY ==
[2024-06-10 13:20] VITALS: BP 110/64; BMI 35.6
== END ==
PROVIDERS: PCP Nurse Practitioner Family; Visit Provider Podiatrist Foot & Ankle Surgery
DX: S82.865D Nondisplaced Maisonneuve's fracture of left leg, subsequent encounter for closed fracture with routine healing (principal); X58.XXXD Exposure to other specified factors, subsequent encounter
CPT/HCPCS: 73590; 99213

== ENCOUNTER → 2024-07-23 16:10 | Outpatient (BNVA) | payer MEDICAID, SELFPAY ==
[2024-06-10 13:20] VITALS: BP 110/64; BMI 35.6
== END ==
PROVIDERS: PCP Nurse Practitioner Family; Visit Provider Internal Medicine
DX: Z79.01 Long term (current) use of anticoagulants (principal)
CPT/HCPCS: 85610

== ENCOUNTER → 2024-08-07 08:53 | Outpatient (BNVA) | payer MEDICAID, SELFPAY ==
[2024-06-10 13:20] VITALS: BP 110/64; BMI 35.6
== END ==
PROVIDERS: PCP Nurse Practitioner Family; Visit Provider Internal Medicine
DX: Z79.01 Long term (current) use of anticoagulants (principal)
CPT/HCPCS: 85610

== ENCOUNTER → 2024-08-14 10:43 | Outpatient (BNVA) | payer MEDICAID, SELFPAY ==
[2024-06-10 13:20] VITALS: BP 110/64; BMI 35.6
== END ==
PROVIDERS: PCP Nurse Practitioner Family; Visit Provider Internal Medicine
DX: Z79.01 Long term (current) use of anticoagulants (principal)
CPT/HCPCS: 85610

== ENCOUNTER → 2024-08-20 10:03 | Outpatient (BNVA) | payer MEDICAID, SELFPAY ==
[2024-06-10 13:20] VITALS: BP 110/64; BMI 35.6
== END ==
PROVIDERS: PCP Nurse Practitioner Family; Visit Provider Internal Medicine
DX: Z79.01 Long term (current) use of anticoagulants (principal)
CPT/HCPCS: 85610

== ENCOUNTER → 2024-08-27 10:42 | Outpatient (BNVA) | payer MEDICAID, SELFPAY ==
[2024-06-10 13:20] VITALS: BP 110/64; BMI 35.6
== END ==
PROVIDERS: PCP Nurse Practitioner Family; Visit Provider Internal Medicine
DX: Z95.2 Presence of prosthetic heart valve (principal)
CPT/HCPCS: 85610

== ENCOUNTER → 2024-09-03 09:03 | Outpatient (BNVA) | payer MEDICAID, SELFPAY ==
[2024-06-10 13:20] VITALS: BP 110/64; BMI 35.6
== END ==
PROVIDERS: PCP Nurse Practitioner Family; Visit Provider Internal Medicine
DX: Z79.01 Long term (current) use of anticoagulants (principal)
CPT/HCPCS: 85610

== ENCOUNTER → 2024-09-11 10:55 | Outpatient (BNVA) | payer MEDICAID, SELFPAY ==
[2024-06-10 13:20] VITALS: BP 110/64; BMI 35.6
== END ==
PROVIDERS: PCP Nurse Practitioner Family; Visit Provider Registered Nurse
DX: N18.9 Chronic kidney disease, unspecified (principal)
CPT/HCPCS: 80069; 82306; 82310; 82570; 83970; 84156; 85007; 85027

== ENCOUNTER → 2024-09-24 15:15 | Outpatient (BNVA) | payer MEDICAID, SELFPAY ==
[2024-06-10 13:20] VITALS: BP 110/64; BMI 35.6
== END ==
PROVIDERS: PCP Nurse Practitioner Family; Visit Provider Internal Medicine
DX: Z79.01 Long term (current) use of anticoagulants (principal)
CPT/HCPCS: 85610

== ENCOUNTER → 2024-10-01 15:55 | Outpatient (BNVA) | payer MEDICAID, SELFPAY ==
[2024-06-10 13:20] VITALS: BP 110/64; BMI 35.6
== END ==
PROVIDERS: PCP Nurse Practitioner Family; Visit Provider Internal Medicine
DX: Z79.01 Long term (current) use of anticoagulants (principal)
CPT/HCPCS: 85610

== ENCOUNTER → 2024-10-08 11:07 | Outpatient (BNVA) | payer MEDICAID, SELFPAY ==
[2024-06-10 13:20] VITALS: BP 110/64; BMI 35.6
== END ==
PROVIDERS: PCP Nurse Practitioner Family; Visit Provider Internal Medicine
DX: Z79.01 Long term (current) use of anticoagulants (principal)
CPT/HCPCS: 85610

== ENCOUNTER → 2024-10-15 09:40 | Outpatient (BNVA) | payer MEDICAID, SELFPAY ==
[2024-06-10 13:20] VITALS: BP 110/64; BMI 35.6
== END ==
PROVIDERS: PCP Nurse Practitioner Family; Visit Provider Internal Medicine
DX: Z79.01 Long term (current) use of anticoagulants (principal)
CPT/HCPCS: 85610

== ENCOUNTER → 2024-10-22 10:38 | Outpatient (BNVA) | payer MEDICAID, SELFPAY ==
[2024-06-10 13:20] VITALS: BP 110/64; BMI 35.6
== END ==
PROVIDERS: PCP Nurse Practitioner Family; Visit Provider Internal Medicine
DX: Z95.2 Presence of prosthetic heart valve (principal)
CPT/HCPCS: 85610

== ENCOUNTER → 2024-10-27 16:47 | Outpatient (BNVA) | payer MEDICAID, SELFPAY ==
[2024-06-10 13:20] VITALS: BP 110/64; BMI 35.6
== END ==
PROVIDERS: PCP Nurse Practitioner Family; Visit Provider Nurse Practitioner Family
DX: S93.409A Sprain of unspecified ligament of unspecified ankle, initial encounter (principal); M77.32 Calcaneal spur, left foot; X58.XXXA Exposure to other specified factors, initial encounter
CPT/HCPCS: 73610

== ENCOUNTER → 2024-10-29 09:52 | Outpatient (BNVA) | payer MEDICAID, SELFPAY ==
[2024-06-10 13:20] VITALS: BP 110/64; BMI 35.6
== END ==
PROVIDERS: PCP Nurse Practitioner Family; Visit Provider Internal Medicine
DX: Z79.01 Long term (current) use of anticoagulants (principal)
CPT/HCPCS: 85610

== ENCOUNTER → 2024-11-12 14:04 | Outpatient (BNVA) | payer MEDICAID, SELFPAY ==
[2024-06-10 13:20] VITALS: BP 110/64; BMI 35.6
== END ==
PROVIDERS: PCP Nurse Practitioner Family; Visit Provider Internal Medicine
DX: Z79.01 Long term (current) use of anticoagulants (principal)
CPT/HCPCS: 85610

== ENCOUNTER → 2024-11-13 15:06 | Outpatient (BNVA) | payer MEDICAID, SELFPAY ==
[2024-06-10 13:20] VITALS: BP 110/64; BMI 35.6
== END ==
PROVIDERS: PCP Nurse Practitioner Family; Visit Provider Nurse Practitioner Family
DX: Z01.818 Encounter for other preprocedural examination (principal); Z79.01 Long term (current) use of anticoagulants; Z79.82 Long term (current) use of aspirin; I10 Essential (primary) hypertension; E78.5 Hyperlipidemia, unspecified; Z95.2 Presence of prosthetic heart valve
CPT/HCPCS: 99213

== ENCOUNTER → 2024-11-25 13:37 | Outpatient (BNVA) | payer MEDICAID, SELFPAY ==
[2024-06-10 13:20] VITALS: BP 110/64; BMI 35.6
== END ==
PROVIDERS: PCP Nurse Practitioner Family; Visit Provider Podiatrist Foot & Ankle Surgery
DX: M72.2 Plantar fascial fibromatosis (principal); M79.671 Pain in right foot; M76.821 Posterior tibial tendinitis, right leg
CPT/HCPCS: 73630; 99214

== ENCOUNTER → 2024-11-26 10:50 | Outpatient (BNVA) | payer MEDICAID, SELFPAY ==
[2024-06-10 13:20] VITALS: BP 110/64; BMI 35.6
== END ==
PROVIDERS: PCP Nurse Practitioner Family; Visit Provider Internal Medicine
DX: Z79.01 Long term (current) use of anticoagulants (principal)
CPT/HCPCS: 85610

== ENCOUNTER → 2024-12-03 15:54 | Outpatient (BNVA) | payer MEDICAID, SELFPAY ==
[2024-06-10 13:20] VITALS: BP 110/64; BMI 35.6
== END ==
PROVIDERS: PCP Nurse Practitioner Family; Visit Provider Internal Medicine
DX: Z79.01 Long term (current) use of anticoagulants (principal)
CPT/HCPCS: 85610

== ENCOUNTER → 2024-12-10 09:33 | Outpatient (BNVA) | payer MEDICAID, SELFPAY ==
[2024-06-10 13:20] VITALS: BP 110/64; BMI 35.6
== END ==
PROVIDERS: PCP Nurse Practitioner Family; Visit Provider Internal Medicine
DX: Z79.01 Long term (current) use of anticoagulants (principal)
CPT/HCPCS: 85610

== ENCOUNTER → 2024-12-18 13:42 | Outpatient (BNVA) | payer MEDICAID, SELFPAY ==
[2024-06-10 13:20] VITALS: BP 110/64; BMI 35.6
== END ==
PROVIDERS: PCP Nurse Practitioner Family; Visit Provider Internal Medicine
DX: Z79.01 Long term (current) use of anticoagulants (principal)
CPT/HCPCS: 85610

== ENCOUNTER → 2024-12-31 10:54 | Outpatient (BNVA) | payer MEDICAID, SELFPAY ==
[2024-06-10 13:20] VITALS: BP 110/64; BMI 35.6
== END ==
PROVIDERS: PCP Nurse Practitioner Family; Visit Provider Internal Medicine
DX: Z79.01 Long term (current) use of anticoagulants (principal)
CPT/HCPCS: 85610

== ENCOUNTER → 2025-01-07 15:26 | Outpatient (BNVA) | payer MEDICAID, SELFPAY ==
[2024-06-10 13:20] VITALS: BP 110/64; BMI 35.6
== END ==
PROVIDERS: PCP Nurse Practitioner Family; Visit Provider Internal Medicine
DX: Z79.01 Long term (current) use of anticoagulants (principal)
CPT/HCPCS: 85610

== ENCOUNTER → 2025-01-14 08:57 | Outpatient (BNVA) | payer MEDICAID, SELFPAY ==
[2024-06-10 13:20] VITALS: BP 110/64; BMI 35.6
== END ==
PROVIDERS: PCP Nurse Practitioner Family; Visit Provider Internal Medicine
DX: Z79.01 Long term (current) use of anticoagulants (principal)
CPT/HCPCS: 85610

== ENCOUNTER → 2025-01-20 08:29 | Outpatient (BNVA) | payer MEDICAID, SELFPAY ==
[2024-06-10 13:20] VITALS: BP 110/64; BMI 35.6
== END ==
PROVIDERS: PCP Nurse Practitioner Family; Visit Provider Nurse Practitioner Family
DX: G56.03 Carpal tunnel syndrome, bilateral upper limbs (principal); D51.8 Other vitamin B12 deficiency anemias; I10 Essential (primary) hypertension; Z95.2 Presence of prosthetic heart valve; E78.5 Hyperlipidemia, unspecified; E03.9 Hypothyroidism, unspecified; E55.9 Vitamin D deficiency, unspecified; K21.9 Gastro-esophageal reflux disease without esophagitis; B18.1 Chronic viral hepatitis B without delta-agent; Z79.899 Other long term (current) drug therapy
CPT/HCPCS: 80053; 80061; 81003; 82306; 82607; 82746; 83036; 84439; 84443; 85025; 85610; 86705; 86706; 87340

== ENCOUNTER → 2025-01-21 10:26 | Outpatient (BNVA) | payer MEDICAID, SELFPAY ==
[2024-06-10 13:20] VITALS: BP 110/64; BMI 35.6
== END ==
PROVIDERS: PCP Nurse Practitioner Family; Visit Provider Nurse Practitioner Family
DX: I10 Essential (primary) hypertension (principal)
CPT/HCPCS: 85025

== ENCOUNTER → 2025-01-28 08:26 | Outpatient (BNVA) | payer MEDICAID, SELFPAY ==
[2025-01-23 15:54] VITALS: BP 150/81; BMI 35.3
== END ==
PROVIDERS: PCP Nurse Practitioner Family; Visit Provider Internal Medicine
DX: Z79.01 Long term (current) use of anticoagulants (principal)
CPT/HCPCS: 85610

== ENCOUNTER → 2025-02-05 09:57 | Outpatient (BNVA) | payer MEDICAID, SELFPAY ==
[2025-02-05 09:47] VITALS: BP 150/81; BMI 35.3
== END ==
PROVIDERS: PCP Nurse Practitioner Family; Visit Provider Internal Medicine
DX: Z95.2 Presence of prosthetic heart valve (principal)
CPT/HCPCS: 85610

== ENCOUNTER → 2025-02-11 14:35 | Outpatient (BNVA) | payer MEDICAID, SELFPAY ==
[2025-02-05 09:47] VITALS: BP 150/81; BMI 35.3
== END ==
PROVIDERS: PCP Nurse Practitioner Family; Visit Provider Internal Medicine
DX: Z95.2 Presence of prosthetic heart valve (principal)
CPT/HCPCS: 85610

== ENCOUNTER → 2025-02-18 14:59 | Outpatient (BNVA) | payer MEDICAID, SELFPAY ==
[2025-02-05 09:47] VITALS: BP 150/81; BMI 35.3
== END ==
PROVIDERS: PCP Nurse Practitioner Family; Visit Provider Internal Medicine
DX: Z95.2 Presence of prosthetic heart valve (principal)
CPT/HCPCS: 85610

== ENCOUNTER → 2025-02-24 09:17 | Outpatient (BNVA) | payer MEDICAID, SELFPAY ==
[2025-02-05 09:47] VITALS: BP 150/81; BMI 35.3
== END ==
PROVIDERS: PCP Nurse Practitioner Family; Visit Provider Internal Medicine
DX: Z95.2 Presence of prosthetic heart valve (principal)
CPT/HCPCS: 85610

== ENCOUNTER → 2025-03-04 11:57 | Outpatient (BNVA) | payer MEDICAID, SELFPAY ==
[2025-02-05 09:47] VITALS: BP 150/81; BMI 35.3
== END ==
PROVIDERS: PCP Nurse Practitioner Family; Visit Provider Internal Medicine
DX: Z79.01 Long term (current) use of anticoagulants (principal)
CPT/HCPCS: 85610

== ENCOUNTER 2025-03-11 10:27 | Outpatient (CLI) | payer MEDICAID, SELFPAY ==
[2024-06-10 13:20] VITALS: BP 110/64; BMI 35.6
[2025-01-23 15:54] VITALS: BP 150/81; BMI 35.3
[2025-02-05 09:47] VITALS: BP 150/81; BMI 35.3
--- NOTE | 2025-03-11 10:20 | MM_ITS ---
WS: [id number] BILATERAL SCREENING DIGITAL TOMOSYNTHESIS MAMMOGRAM WITH CAD HISTORY: Z12.31 - Encounter for screening mammogram for malignant ... COMPARISON: 04/11/2023, 10/06/2015 Bilateral CC and MLO views with tomosynthesis and synthetic mammography submitted. Computer aided detection analyzed. Breast composition: There are scattered areas of fibroglandular density. No suspicious masses, microcalcifications or architectural distortion. MM/MM scr tomosynthesis [id number] IMPRESSION: BI-RADS: 2 - Benign. FOLLOW UP: 1 Year Follow-up
== END 2025-03-11 10:28 | disposition home or self-care (01) ==
LOC: MOBLMAM 10:29
PROVIDERS: PCP Nurse Practitioner Family; Visit Provider Nurse Practitioner Family
DX: Z12.31 Encounter for screening mammogram for malignant neoplasm of breast (principal); R92.323 Mammographic fibroglandular density, bilateral breasts
CPT/HCPCS: 77063; 77067

== ENCOUNTER → 2025-03-12 13:13 | Outpatient (BNVA) | payer MEDICAID, SELFPAY ==
[2025-02-05 09:47] VITALS: BP 150/81; BMI 35.3
== END ==
PROVIDERS: PCP Nurse Practitioner Family; Visit Provider Internal Medicine
DX: R11.2 Nausea with vomiting, unspecified (principal)
CPT/HCPCS: 85610

== ENCOUNTER → 2025-03-19 09:59 | Outpatient (BNVA) | payer MEDICAID, SELFPAY ==
[2025-02-05 09:47] VITALS: BP 150/81; BMI 35.3
== END ==
PROVIDERS: PCP Nurse Practitioner Family; Visit Provider Internal Medicine
DX: Z95.2 Presence of prosthetic heart valve (principal)
CPT/HCPCS: 85610

== ENCOUNTER → 2025-03-25 11:18 | Outpatient (BNVA) | payer MEDICAID, SELFPAY ==
[2025-02-05 09:47] VITALS: BP 150/81; BMI 35.3
== END ==
PROVIDERS: PCP Nurse Practitioner Family; Visit Provider Internal Medicine
DX: Z79.01 Long term (current) use of anticoagulants (principal)
CPT/HCPCS: 85610

== ENCOUNTER → 2025-04-01 10:12 | Outpatient (BNVA) | payer MEDICAID, SELFPAY ==
[2025-02-05 09:47] VITALS: BP 150/81; BMI 35.3
== END ==
PROVIDERS: PCP Nurse Practitioner Family; Visit Provider Nurse Practitioner Family
DX: Z95.2 Presence of prosthetic heart valve (principal)
CPT/HCPCS: 85610

== ENCOUNTER → 2025-04-10 16:18 | Outpatient (BNVA) | payer MEDICAID, SELFPAY ==
[2025-02-05 09:47] VITALS: BP 150/81; BMI 35.3
== END ==
PROVIDERS: PCP Nurse Practitioner Family; Visit Provider Internal Medicine
DX: Z95.2 Presence of prosthetic heart valve (principal)
CPT/HCPCS: 85610

== ENCOUNTER → 2025-04-15 13:26 | Outpatient (BNVA) | payer MEDICAID, SELFPAY ==
[2025-02-05 09:47] VITALS: BP 150/81; BMI 35.3
== END ==
PROVIDERS: PCP Nurse Practitioner Family; Visit Provider Internal Medicine
DX: Z95.2 Presence of prosthetic heart valve (principal)
CPT/HCPCS: 85610

== ENCOUNTER → 2025-04-22 10:26 | Outpatient (BNVA) | payer MEDICAID, SELFPAY ==
[2025-02-05 09:47] VITALS: BP 150/81; BMI 35.3
== END ==
PROVIDERS: PCP Nurse Practitioner Family; Visit Provider Internal Medicine
DX: Z79.01 Long term (current) use of anticoagulants (principal)
CPT/HCPCS: 85610

== ENCOUNTER → 2025-04-27 11:59 | Outpatient (BNVA) | payer MEDICAID, SELFPAY ==
[2025-02-05 09:47] VITALS: BP 150/81; BMI 35.3
== END ==
PROVIDERS: PCP Nurse Practitioner Family; Visit Provider Internal Medicine
DX: Z79.01 Long term (current) use of anticoagulants (principal)
CPT/HCPCS: 85610

== ENCOUNTER → 2025-05-05 11:31 | Outpatient (BNVA) | payer MEDICAID, SELFPAY ==
[2025-02-05 09:47] VITALS: BP 150/81; BMI 35.3
== END ==
PROVIDERS: PCP Nurse Practitioner Family; Visit Provider Nurse Practitioner Family
DX: Z95.2 Presence of prosthetic heart valve (principal)
CPT/HCPCS: 85610